=== PATIENT | female | born 1940 | race Caucasian/White ===

== ENCOUNTER 2017-04-22 16:20 | Observation (INO) | payer OTHER ==
[~2017-04-22] VITALS: Ht 167.6 cm; Wt 65.7 kg
[~2017-04-22 16:20] MED LIST: DICL1GEL28 TOP; POLYSOL50 OPR; PRED1SUS3
--- NOTE | 2017-04-22 16:41 | DIAGNOSTIC IMAGING REPORT ---
CT HEAD WITHOUT CONTRAST (CT) CLINICAL HISTORY: Weakness, confusion. Possible stroke. COMPARISON STUDY: No previous studies for comparison. TECHNIQUE: Axial CT of the brain is performed from the vertex to the skull base. IV contrast was not administered for this examination. A dose lowering technique was utilized adhering to the principles of ALARA. CT DOSE: 623.48 mGy.cm FINDINGS: No intra or extra-axial mass lesions are visualized. There is no CT evidence of acute cortical infarction. There is no evidence of midline shift. There is no acute hemorrhage. No calvarial fractures are visualized. There are patchy white matter hypodensities likely on a small vessel basis. There is no evidence of pathologic ventricular dilatation. There is a small right maxillary sinus air-fluid level. IMPRESSION: 1. No acute intracranial findings 2. Small right maxillary sinus air-fluid level. Correlate clinically in regards to sinusitis Electronically signed by: Ranjan Moran M.D. 04/22/2017 4:40 PM Dictated Date/Time: 04/22/2017 4:39 PM
--- NOTE | 2017-04-22 16:47 | EMERGENCY ROOM VISIT NOTE ---
History Report prepared by Christopher: Lindsay Damico Under the Supervision of: Dr. Wagner Vieira M.D. First contact with patient: 16:21 Stated Complaint: POSS. 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 Positive forgetfulness and leg cramps. Negative chest pain, shortness of breath, or urinary symptoms. The patient states that she was at the [employer] salon when she experienced forgetfulness. Per family, she called the [employer] to inform them that she was late due to lack of parking and she parked half a block away; however, there the parking lot was empty. Per family, the patient is normally coherent. Per EMS, the [place] stroke evaluation was negative. Per EMS, the patient's blood sugar was normal and her vital signs were normal. Per EMS, the patient was protecting her airway. Per EMS, the patient did not have obvious focal neurological deficits. She denies any other underlying medical problems. She denies any history of tobacco or alcohol use. 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 Review of Systems See HPI for pertinent positives and negatives. A total of ten systems were reviewed and were otherwise negative. Past Medical & Surgical Surgical Problems: (1) Hx of appendectomy (2) Hx of cataract surgery (3) Hx of tonsillectomy Family History Diabetes mellitus Hypertension Lung disease Social History Smoking Status: Never Smoker Alcohol Use: none Marital Status: Housing Status: lives with family Occupation Status: retired Current/Historical Medications Scheduled Polymyxin/Trimethoprim Oph (Polytrim Oph), 1 DROP OPR EVERY 1 HOUR Prednisolone Acetate 1% Oph (Pred Forte 1% Oph), 1 DROP BID Allergies Coded Allergies: No Known Allergies (Unverified , 04/22/17) Physical Exam Vital Signs Date Time Temp Pulse Resp B/P (MAP) Pulse Ox O2 Delivery O2 Flow Rate FiO2 04/22/17 20:02 36.7 81 16 137/81 97 04/22/17 19:38 81 16 137/81 97 Room Air 04/22/17 18:02 83 16 125/69 94 Room Air 04/22/17 16:50 89 04/22/17 16:41 36.7 83 16 133/76 Room Air 04/22/17 16:39 96 Room Air Physical Exam GENERAL: Awake, alert, well-appearing, NAD HENT: Normocephalic, atraumatic. EYES: Normal conjunctiva. Sclera non-icteric. NECK: Supple. No nuchal rigidity. FROM. RESPIRATORY: CTAB, no rhonchi, wheezing, crackles CARDIAC: RRR, no MRG ABDOMEN: Soft, NTND, BS+ MSK: No chest wall TTP, no LE edema NEURO: CN 2-12 intact, 5/5 upper and lower extremity strength, no dysmetria, no drift, good finger to nose, no sensory deficits. SKIN: No rash or jaundice noted. Medical Decision & Procedures ER Provider Diagnostic Interpretation: Radiology results as stated below per my review and radiologist interpretation: CT HEAD WITHOUT CONTRAST (CT) CLINICAL HISTORY: Weakness, confusion. Possible stroke. COMPARISON STUDY: No previous studies for comparison. TECHNIQUE: Axial CT of the brain is performed from the vertex to the skull base. IV contrast was not administered for this examination. A dose lowering technique was utilized adhering to the principles of ALARA. CT DOSE: 623.48 mGy.cm FINDINGS: No intra or extra-axial mass lesions are visualized. There is no CT evidence of acute cortical infarction. There is no evidence of midline shift. There is no acute hemorrhage. No calvarial fractures are visualized. There are patchy white matter hypodensities likely on a small vessel basis. There is no evidence of pathologic ventricular dilatation. There is a small right maxillary sinus air-fluid level. IMPRESSION: 1. No acute intracranial findings 2. Small right maxillary sinus air-fluid level. Correlate clinically in regards to sinusitis Electronically signed by: Ranjan Moran M.D. 04/22/2017 4:40 PM Dictated Date/Time: 04/22/2017 4:39 PM Laboratory Results 04/22/17 16:06 Red Blood Count 4.80, Mean Corpuscular Volume 91.9, Mean Corpuscular Hemoglobin 31.9, Mean Corpuscular Hemoglobin Concent 34.7, Mean Platelet Volume 9.9, Neutrophils (%) (Auto) 81.1, Lymphocytes (%) (Auto) 13.3, Monocytes (%) (Auto) 4.5, Eosinophils (%) (Auto) 0.5, Basophils (%) (Auto) 0.2, Neutrophils # (Auto) 6.66, Lymphocytes # (Auto) 1.09, Monocytes # (Auto) 0.37, Eosinophils # (Auto) 0.04, Basophils # (Auto) 0.02 04/22/17 16:06 Test 04/22/17 16:06 04/22/17 17:27 White Blood Count 8.21 K/uL (4.8-10.8) Red Blood Count 4.80 M/uL (4.2-5.4) Hemoglobin 15.3 g/dL (12.0-16.0) Hematocrit 44.1 % (37-47) Mean Corpuscular Volume 91.9 fL (80-100) Mean Corpuscular Hemoglobin 31.9 pg (25-34) Mean Corpuscular Hemoglobin Concent 34.7 g/dl (32-36) Platelet Count 190 K/uL (130-400) Mean Platelet Volume 9.9 fL (7.4-10.4) Neutrophils (%) (Auto) 81.1 % Lymphocytes (%) (Auto) 13.3 % Monocytes (%) (Auto) 4.5 % Eosinophils (%) (Auto) 0.5 % Basophils (%) (Auto) 0.2 % Neutrophils # (Auto) 6.66 K/uL (1.4-6.5) Lymphocytes # (Auto) 1.09 K/uL (1.2-3.4) Monocytes # (Auto) 0.37 K/uL (0.11-0.59) Eosinophils # (Auto) 0.04 K/uL (0-0.5) Basophils # (Auto) 0.02 K/uL (0-0.2) RDW Standard Deviation 41.8 fL (36.4-46.3) RDW Coefficient of Variation 12.4 % (11.5-14.5) Immature Granulocyte % (Auto) 0.4 % Immature Granulocyte # (Auto) 0.03 K/uL (0.00-0.02) Prothrombin Time 10.7 SECONDS (9.0-12.0) Prothromb Time International Ratio 1.0 (0.9-1.1) Activated Partial Thromboplast Time 24.8 SECONDS (21.0-31.0) Partial Thromboplastin Ratio 1.0 Anion Gap 8.0 mmol/L (3-11) Est Creatinine Clear Calc Drug Dose 48.1 ml/min Estimated GFR () 69.2 Estimated GFR (Non- 59.7 BUN/Creatinine Ratio 20.0 (10-20) Calcium Level 8.5 mg/dl (8.5-10.1) Magnesium Level 2.1 mg/dl (1.8-2.4) Total Bilirubin 0.5 mg/dl (0.2-1) Direct Bilirubin < 0.1 mg/dl (0-0.2) Aspartate Amino Transf (AST/SGOT) 23 U/L (15-37) Alanine Aminotransferase (ALT/SGPT) 26 U/L (12-78) Alkaline Phosphatase 80 U/L (45-117) Troponin I < 0.015 ng/ml (0-0.045) Pro-B-Type Natriuretic Peptide 140 pg/ml (0-1800) Total Protein 7.6 gm/dl (6.4-8.2) Albumin 3.8 gm/dl (3.4-5.0) Lipase 193 U/L (73-393) Thyroid Stimulating Hormone (TSH) 1.060 uIu/ml (0.300-4.500) Urine Color YELLOW Urine Appearance CLEAR (CLEAR) Urine pH 7.0 (4.5-7.5) Urine Specific [place] 1.013 (1.000-1.030) Urine Protein NEG (NEG) Urine Glucose (UA) NEG (NEG) Urine Ketones NEG (NEG) Urine Occult Blood NEG (NEG) Urine Nitrite NEG (NEG) Urine Bilirubin NEG (NEG) Urine Urobilinogen NEG (NEG) Urine Leukocyte Esterase NEG (NEG) Laboratory results reviewed by me Medications Administered Medications (Trade) Dose Ordered Sig/Berna Route Start Time Stop Time Status Last Admin Dose Admin Aspirin (Aspirin Chew) 324 mg NOW STAT PO 04/22/17 17:43 04/22/17 17:59 DC 04/22/17 18:02 324 MG ECG Indication: altered mental status Rate (beats per minute): 76 Rhythm: sinus rhythm Findings: nonspecific-ST abn, T-wave inversion (aVL), other (Normal axis. Short WI. No other STS changes or TWI.) ED Course 1635: The patient was evaluated in room B2. A complete history and physical exam was performed. 174: I reassessed the patient at this time. She is resting comfortably. The family states the patient is still confused. Medical Decision Prior records/ancillary studies reviewed and summarized above. Nursing notes reviewed. Additional history obtained from EMS and family. The patient's history was concerning for altered mental status. Differential diagnosis: Etiologies such as metabolic, infection, hypoglycemia, electrolyte abnormalities , cardiac sources, intracerebral event, toxicologic, neurologic, as well as others were entertained. Patient was seen and evaluated at the bedside. I did receive a medical command call us the patient did have some concern for possible confusion, altered mental status, or stroke. 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 Bony care glucose was normal on scene. Patient did go straight to CT scan. Upon presentation the patient was very well -appearing and O 3 with a GCS of 15. Patient did not have any focal either subjective or objective neurologic deficits. Patient did have blood work, EKG, troponin, CT brain, and chest x-ray completed. Patient's chest x-ray negative acute. CT brain negative acute. Patient's EKG nonischemic however, single isolated T wave inversion in aVL as well as short WI but no other acute concerns. Patient's blood work was fairly unremarkable. Patient had normal glucose. Patient had normal kidney function. Patient had no severe electrolyte derangements. Patient had a normal white blood cell count and H&H. Given the patient's ongoing confusion there was questionable concern for TIA or possible initial stroke that would require additional imaging. I did discuss this could be seizure. However, patient w/o seizure like activity, trauma, tongue biting, incontinence, or headache. I did speak with the hospitalist who agreed to further evaluate and treat the patient. Patient was given a full dose aspirin. Medication Reconcilliation Current Medication List: was personally reviewed by me Blood Pressure Screening Patient's blood pressure: Normal blood pressure Impression Primary Impression: Confusion Scribe Attestation The scribe's documentation has been prepared under my direction and personally reviewed by me in its entirety. I confirm that the note above accurately reflects all work, treatment, procedures, and medical decision making performed by me. Departure Information Dispostion Being Evaluated By Hospitalist Jesse Hummel MD (PCP)
[2017-04-22 16:57] LABS: BASO % 0.2 %; BASO ABS # 0.02 K/uL (0-0.2); EOS % 0.5 %; EOS ABS # 0.04 K/uL (0-0.5); HEMATOCRIT 44.1 % (37-47); HEMOGLOBIN 15.3 g/dL (12.0-16.0); IG# 0.03 K/uL (0.00-0.02); LYMPH % 13.3 %; LYMPH ABS # 1.09 K/uL (1.2-3.4); MEAN CELL VOLUME 91.9 fL (80-100); MEAN CORPUSCULAR HEMOGLOBIN 31.9 pg (25-34); MEAN CORPUSCULAR HGB CONC 34.7 g/dl (32-36); MEAN PLATELET VOLUME 9.9 fL (7.4-10.4); MONO % 4.5 %; MONO ABS # 0.37 K/uL (0.11-0.59); NEUT % 81.1 %; NEUT ABS # 6.66 K/uL (1.4-6.5); PLATELET COUNT 190 K/uL (130-400); RED CELL DISTRIBUTION WIDTH CV 12.4 % (11.5-14.5); RED CELL DISTRIBUTION WIDTH SD 41.8 fL (36.4-46.3); WHITE BLOOD COUNT 8.21 K/uL (4.8-10.8)
[2017-04-22 17:08] LABS: PTT PATIENT 24.8 SECONDS (21.0-31.0)
[2017-04-22 17:14] LABS: ALBUMIN 3.8 gm/dl (3.4-5.0); ALT/SGPT 26 U/L (12-78); BLOOD UREA NITROGEN 19 mg/dl (7-18); CALCIUM 8.5 mg/dl (8.5-10.1); CARBON DIOXIDE 27 mmol/L (21-32); CREATININE 0.93 mg/dl (0.60-1.20); GLUCOSE 115 mg/dl (70-99); LIPASE 193 U/L (73-393); POTASSIUM 4.1 mmol/L (3.5-5.1); SODIUM 138 mmol/L (136-145)
--- NOTE | 2017-04-22 17:23 | DIAGNOSTIC IMAGING REPORT ---
CHEST ONE VIEW PORTABLE CLINICAL HISTORY: Weakness COMPARISON STUDY: No previous studies for comparison. FINDINGS: The cardiac and mediastinal contours are normal. There is no evidence of focal pulmonary consolidation. There is no evidence of failure. No pleural effusions are visualized.[ There is mild biapical pleural thickening IMPRESSION: No active disease in the chest. Electronically signed by: Ranjan Moran M.D. 04/22/2017 5:22 PM Dictated Date/Time: 04/22/2017 5:22 PM
[2017-04-22 17:25] LABS: ALKALINE PHOSPHATASE 80 U/L (45-117); AST/SGOT 23 U/L (15-37); TOTAL PROTEIN 7.6 gm/dl (6.4-8.2)
[2017-04-22] MEDS ORDERED: ASPIRIN 324 MG CHEW PO STA (17:43)
[2017-04-22] MEDS ORDERED: ALUMINUM/MAGNESIUM/SIMETH (MAALOX MAX) 30 ML UDC PO PRN (19:30)
[2017-04-22] MEDS ORDERED: PHARMACIST DISCHARGE MED REC CONSULT PRN (19:30)
[2017-04-22] MEDS ORDERED: ACETAMINOPHEN 325 MG TAB PO PRN (19:30)
[2017-04-22] MEDS ORDERED: POLYETHYLENE (MIRALAX) 17 GM PACK PO PRN (19:30)
[2017-04-22] MEDS ORDERED: ONDANSETRON INJ 2 MG/ML 2 ML VIAL IV PRN (19:30)
[2017-04-22] MEDS ORDERED: MAGNESIUM HYDROXIDE SUSP 30 ML UDC PO PRN (19:30)
--- NOTE | 2017-04-22 19:43 | History and Physical ---
History & Physical Date & Time of Service: Apr 22, 2017 at 19:41 Chief Complaint: Poss. Stroke Primary Care Physician: Jesse Verde MD History of Present Illness Source: patient 76 y/o F with history of recently diagnosed hyperlipidemia and no additional active medical issues. The pt was apparently driving to her hair salon when she became acutely confused. She phoned the salon saying that she was going to be late as she could not find parking despite the parking lot being empty. She then told her assistant hairstylist that she did not know where her car was. The assistant hairstylist, no doubt an astute individual, recognized that she was not acting like herself, and informed her family. She was picked up by her daughter and eventually brought to the ER. The pt is awake and alert but does display memory impairment which her family states is an acute change from her baseline. She does not know the date, does not know who the president is and could not recall any items on 3 item recall. Past Medical/Surgical History Recent diagnosis of elevated cholesterol - has not been treated Surgical Problems: Appendectomy Cataract surgery Tonsillectomy Corneal transplant Family History Diabetes mellitus Hypertension Lung disease Mother owing to COPD - no history of CVA, CAD or dementia reported Social History Pt is normally fully independent Smoking Status: Never Smoker Marital Status: Occupational Status: retired Allergies Coded Allergies: No Known Allergies (Unverified , 04/22/17) Home Medications Scheduled Polymyxin/Trimethoprim Oph (Polytrim Oph), 1 DROP OPR EVERY 1 HOUR Prednisolone Acetate 1% Oph (Pred Forte 1% Oph), 1 DROP BID Review of Systems Constitutional: No fever, No chills, No sweats Eyes: No worsening of vision ENT: No hearing loss, No nasal symptoms Respiratory: No cough, No wheezing Cardiovascular: No chest pain, No orthopnea, No PND Abdomen: No pain, No vomiting Musculoskeletal: No joint pain Genitourinary - Female: No dysuria, No urinary frequency, No urinary urgency Neurologic: + memory loss, No weakness Psychiatric: No depression symptoms Endocrine: No fatigue Hematologic / Lymphatic: No abnormal bleeding/bruising Integumentary: No rash Allergic / Immunologic: No environmental allergies Physical Exam Vital Signs Date Time Temp Pulse Resp B/P (MAP) Pulse Ox O2 Delivery O2 Flow Rate FiO2 04/22/17 18:02 83 16 125/69 94 Room Air 04/22/17 16:50 89 04/22/17 16:41 36.7 83 16 133/76 Room Air 04/22/17 16:39 96 Room Air General Appearance: + pertinent finding (PLeasant, elderly female in no distress) Head: normocephalic Eyes: normal inspection ENT: normal ENT inspection, pharynx normal Neck: supple, no JVD Respiratory/Chest: chest non-tender, lungs clear, normal breath sounds Cardiovascular: regular rate, rhythm, no edema, no gallop Abdomen/GI: normal bowel sounds, non tender, soft Back: normal inspection, no CVA tenderness Extremities/Musculoskelatal: normal inspection, no calf tenderness, normal capillary refill Neurologic/Psych: emergency management system director II-XII nml as tested Skin: + pertinent finding (There are no motor or sensory deficits - coordination is fully intact - she is unable to recall the date or who the president is - she cannot recall any items on 3 item recall - she is orientd x 2 despite this) Diagnostics Laboratory Results Results Past 24 Hours Test 04/22/17 16:06 04/22/17 17:27 Range/Units White Blood Count 8.21 4.8-10.8 K/uL Red Blood Count 4.80 4.2-5.4 M/uL Hemoglobin 15.3 12.0-16.0 g/dL Hematocrit 44.1 37-47 % Mean Corpuscular Volume 91.9 80-100 fL Mean Corpuscular Hemoglobin 31.9 25-34 pg Mean Corpuscular Hemoglobin Concent 34.7 32-36 g/dl Platelet Count 190 130-400 K/uL Mean Platelet Volume 9.9 7.4-10.4 fL Neutrophils (%) (Auto) 81.1 % Lymphocytes (%) (Auto) 13.3 % Monocytes (%) (Auto) 4.5 % Eosinophils (%) (Auto) 0.5 % Basophils (%) (Auto) 0.2 % Neutrophils # (Auto) 6.66 1.4-6.5 K/uL Lymphocytes # (Auto) 1.09 1.2-3.4 K/uL Monocytes # (Auto) 0.37 0.11-0.59 K/uL Eosinophils # (Auto) 0.04 0-0.5 K/uL Basophils # (Auto) 0.02 0-0.2 K/uL RDW Standard Deviation 41.8 36.4-46.3 fL RDW Coefficient of Variation 12.4 11.5-14.5 % Immature Granulocyte % (Auto) 0.4 % Immature Granulocyte # (Auto) 0.03 0.00-0.02 K/uL Prothrombin Time 10.7 9.0-12.0 SECONDS Prothromb Time International Ratio 1.0 0.9-1.1 Activated Partial Thromboplast Time 24.8 21.0-31.0 SECONDS Partial Thromboplastin Ratio 1.0 Sodium Level 138 136-145 mmol/L Potassium Level 4.1 3.5-5.1 mmol/L Chloride Level 103 98-107 mmol/L Carbon Dioxide Level 27 21-32 mmol/L Anion Gap 8.0 3-11 mmol/L Blood Urea Nitrogen 19 7-18 mg/dl Creatinine 0.93 0.60-1.20 mg/dl Est Creatinine Clear Calc Drug Dose 48.1 ml/min Estimated GFR () 69.2 Estimated GFR (Non- 59.7 BUN/Creatinine Ratio 20.0 10-20 Random Glucose 115 70-99 mg/dl Calcium Level 8.5 8.5-10.1 mg/dl Magnesium Level 2.1 1.8-2.4 mg/dl Total Bilirubin 0.5 0.2-1 mg/dl Direct Bilirubin < 0.1 0-0.2 mg/dl Aspartate Amino Transf (AST/SGOT) 23 15-37 U/L Alanine Aminotransferase (ALT/SGPT) 26 12-78 U/L Alkaline Phosphatase 80 45-117 U/L Troponin I < 0.015 0-0.045 ng/ml Pro-B-Type Natriuretic Peptide 140 0-1800 pg/ml Total Protein 7.6 6.4-8.2 gm/dl Albumin 3.8 3.4-5.0 gm/dl Lipase 193 73-393 U/L Thyroid Stimulating Hormone (TSH) 1.060 0.300-4.500 uIu/ml Urine Color YELLOW Urine Appearance CLEAR CLEAR Urine pH 7.0 4.5-7.5 Urine Specific [place] 1.013 1.000-1.030 Urine Protein NEG NEG Urine Glucose (UA) NEG NEG Urine Ketones NEG NEG Urine Occult Blood NEG NEG Urine Nitrite NEG NEG Urine Bilirubin NEG NEG Urine Urobilinogen NEG NEG Urine Leukocyte Esterase NEG NEG Microbiology Results 04/22/17 Urine Culture, Received Pending Diagnostic Radiology CT head 1. No acute intracranial findings 2. Small right maxillary sinus air-fluid level. Correlate clinically in regards to sinusitis Normal EKG Impression Assessment and Plan 76 y/o F with history of recently diagnosed hyperlipidemia and no additional active medical issues. The pt was apparently driving to her hair salon when she became acutely confused. She phoned the salon saying that she was going to be late as she could not find parking despite the parking lot being empty. She then told her assistant hairstylist that she did not know where her car was. The assistant hairstylist, no doubt an astute individual, recognized that she was not acting like herself, and informed her family. She was picked up by her daughter and eventually brought to the ER. The pt is awake and alert but does display memory impairment which her family states is an acute change from her baseline. She does not know the date, does not know who the president is and could not recall any items on 3 item recall. The pt has persistent memory impairment - the exam would be consistent with dementia, however, the family are adamant that her memory loss is acute. She is admitted with a TIA protocol. An MRI/MRA will be obtained and we will consult neurology. She will be placed on ASA and a statin. Full code - Heparin prophylaxis Total time for this admit including review of labs, meds, imaging - discussion with pt, family and ER attending - 37 min Level of Care Telemetry Resuscitation Status FULL RESUSCITATION VTE Prophylaxis VTE Risk Assessment Done? Y/N: Yes Risk Level: Low Given or contraindicated: Unfractionated heparin SQ
[2017-04-22 20:02] VITALS: O2SAT 97
[2017-04-22 20:10] VITALS: BP 91/42; TEMP 37; Ht 167.6 cm; Wt 65.7 kg
[2017-04-22] MEDS ORDERED: IV FLUIDS COMPLETED PRN (20:15)
[2017-04-22] MEDS: PrednisoLONE ACET 1% OP SUSP 5 ML BTL OP SCH (21:00)
[2017-04-22] MEDS ORDERED: SIMVASTATIN 20 MG TAB PO SCH (21:00)
--- NOTE | 2017-04-22 21:27 | DIAGNOSTIC IMAGING REPORT ---
MR ANGIOGRAPHY OF THE [place] NO CONTRAST CLINICAL HISTORY: Weakness. Suspected acute stroke. Confusion. Memory loss. COMPARISON STUDY: None. A 3-D [id number] MR angiographic sequence of the [place] was performed. Both the source and projection images were reviewed. There is no evidence of major intracranial branch occlusion. There is no evidence of intracranial stenosis. There are no lesions suspicious for aneurysm. IMPRESSION: Unremarkable MR angiography of the [place]. Electronically signed by: Ranjan Moran M.D. 04/22/2017 9:26 PM Dictated Date/Time: 04/22/2017 9:22 PM
--- NOTE | 2017-04-22 21:36 | DIAGNOSTIC IMAGING REPORT ---
MRI OF THE BRAIN WITHOUT CONTRAST CLINICAL HISTORY: Stroke CONFUSION, MEMORY LOSS. COMPARISON STUDY: Noncontrast head CT dated 04/22/2017 FINDINGS: Sagittal T1, axial diffusion, proton density and T2 weighted axial, coronal FLAIR, and axial T1-weighted images were acquired. No intra or extra-axial mass lesions are visualized Axial diffusion-weighted images reveal no evidence of acute or subacute infarction. There is no evidence of ventricular dilatation. Proton density T2-weighted and FLAIR images reveal scattered foci of increased T2 signal within the white matter, likely on a small vessel basis. There are no abnormal flow voids. There are mild inflammatory changes within the maxillary sinuses IMPRESSION: 1. No evidence of acute or subacute infarction 2. No intracranial masses identified in this noncontrast study 3. Scattered foci of increased T2 signal within the white matter, likely on a small vessel ischemic basis Electronically signed by: Ranjan Moran M.D. 04/22/2017 9:35 PM Dictated Date/Time: 04/22/2017 9:33 PM
--- NOTE | 2017-04-22 21:53 | DIAGNOSTIC IMAGING REPORT ---
NECK MRA HISTORY: Stroke TECHNIQUE: [id number] and gadolinium-enhanced MRA of the neck was performed both before and after the intravenous administration of contrast (6.5 cc intravenous Gadavist. All measurements were calculated based on NASCET criteria. COMPARISON STUDY: None. FINDINGS: The aortic arch and proximal great vessels are widely patent. There is no significant stenosis, occlusion, or dissection identified within the bilateral common carotid, internal carotid, or vertebral arteries. IMPRESSION: No significant stenosis, occlusion, or dissection identified within the carotid or vertebral arteries. Electronically signed by: Ranjan Moran M.D. 04/22/2017 9:52 PM Dictated Date/Time: 04/22/2017 9:50 PM
[2017-04-22 22:09] VITALS: BP 91/42; PULSE 82; TEMP 37; O2SAT 93
[2017-04-22 23:15] VITALS: BP 122/76; PULSE 77; TEMP 36.8; O2SAT 97
[2017-04-23 03:05] VITALS: BP 121/71; PULSE 82; TEMP 37; O2SAT 96
[2017-04-23 07:18] VITALS: BP 117/72; PULSE 74; TEMP 36.8; O2SAT 95
[2017-04-23] MEDS: PrednisoLONE ACET 1% OP SUSP 5 ML BTL OP SCH (09:00)
[2017-04-23] MEDS ORDERED: TRIMETHOPRIM/POLYMYXIN B OPR SCH (09:00)
[2017-04-23] MEDS ORDERED: ASPIRIN 81 MG ECTAB PO SCH (09:00)
--- NOTE | 2017-04-23 11:14 | Discharge Instructions ---
Discharge Instructions Date of Service Apr 23, 2017. Admission Reason for Admission: Confusion Discharge Discharge Diagnosis / Problem: Encephalopathy, dementia Discharge Goals Goal(s): Decrease discomfort, Improve function, Increase independence, Improve disease control, Improve nutritional status, Learn about illness, Diagnostic testing, Therapeutic intervention, Prevent Disease Progression Activity Recommendations Activity Limitations: resume your previous activity Exercise/Sports Limitations: as tolerated . Instructions / Follow-Up Instructions / Follow-Up Patient to be discharged home Likely patient has beginning symptoms of dementia No stroke or lesions found on imaging studies Patient stable for discharge No changes in medications made Follow up with Dr Verde in 1-2 weeks Current Hospital Diet Patient's current hospital diet: Regular Diet Discharge Diet Recommended Diet: Regular Diet Pending Studies Studies pending at discharge: no Laboratory Results Hemoglobin A1c Test 04/22/17 16:06 Range/Units Lipid Panel Test 04/23/17 06:59 Range/Units Triglycerides Level 59 0-150 mg/dl Cholesterol Level 183 0-200 mg/dl HDL Cholesterol 73 mg/dl Cholesterol/HDL Ratio 2.5 LDL Cholesterol, Calculated 98 mg/dl Medical Emergencies . Who to Call and When: Medical Emergencies: If at any time you feel your situation is an emergency, please call 911 immediately. . Non-Emergent Contact Non-Emergency issues call your: Primary Care Provider Call Non-Emergent contact if: you have any medication questions . . "Provider Documentation" section prepared by Marck Rosas. . VTE Core Measure Inpt VTE Proph given/why not?: Unfractionated heparin SQ
[2017-04-23 11:21] VITALS: BP 119/63; PULSE 80; TEMP 36.9; O2SAT 95
[2017-04-23 12:55] VITALS: BP 119/63; PULSE 80; TEMP 36.9; O2SAT 95
--- NOTE | 2017-04-23 14:07 | Discharge Summary ---
Discharge Summary Date of Service Apr 23, 2017. Discharge Summary Admission Date: Apr 22, 2017 at 19:33 Discharge Date: Apr 23, 2017 Discharge Disposition: Home Principal Diagnosis: Acute delirium Medication Reconciliation Continued Medications: Polymyxin/Trimethoprim Oph (Polytrim Oph) Soln 1 DROP OPR EVERY 1 HOUR Prednisolone Acetate 1% Oph (Pred Forte 1% Oph) Susp 1 DROP BID Discharge Exam Review of Systems: Constitutional: No fever, No chills, No sweats, No weakness Respiratory: No cough, No sputum, No wheezing, No shortness of breath Cardiovascular: No chest pain, No orthopnea, No PND, No edema Abdomen: No pain, No nausea, No vomiting, No diarrhea Musculoskeletal: No joint pain, No muscle pain, No swelling, No calf pain Genitourinary - Female: No dysuria, No urinary frequency, No urinary urgency , No urinary incontinence Neurologic: No memory loss, No paralysis, No weakness, No numbness/tingling Psychiatric: No depression symptoms, No anhedonism, No anxiety, No insomnia Endocrine: No fatigue, No excessive thirst Integumentary: No rash, No itch Physical Exam: General Appearance: WD/WN, no apparent distress Eyes: normal inspection, PERRL, EOMI, sclerae normal Neck: supple, no adenopathy, thyroid normal, no JVD Respiratory/Chest: chest non-tender, lungs clear, normal breath sounds, no respiratory distress Cardiovascular: regular rate, rhythm, no edema, no gallop, no JVD Abdomen / GI: normal bowel sounds, non tender, soft, no organomegaly Neurologic/Psychiatric: no motor/sensory deficits, alert, normal mood/affect , oriented x 3 Skin: normal color, warm/dry, no rash Lymphatic: no adenopathy Hospital Course 76 y/o F with history of recently diagnosed hyperlipidemia and no additional active medical issues. The pt was apparently driving to her hair salon when she became acutely confused. She phoned the salon saying that she was going to be late as she could not find parking despite the parking lot being empty. She then told her bow rehairer that she did not know where her car was. The bow rehairer, no doubt an astute individual, recognized that she was not acting like herself, and informed her family. She was picked up by her daughter and eventually brought to the ER. The pt is awake and alert but does display memory impairment which her family states is an acute change from her baseline. She does not know the date, does not know who the president is and could not recall any items on 3 item recall. The pt has persistent memory impairment - the exam would be most consistent with dementia, however, the family are adamant that her memory loss is acute. Brain/neck MRI/MRA unremarkable. No focal defecits noted. Pt alert and oriented x 3 the following day. Laboratory data unremarkable, TSH, B12, lymes unremarkable. Discharge to home Full code - Heparin prophylaxis Total Time Spent: Greater than 30 minutes This includes examination of the patient, discharge planning, medication reconciliation, and communication with other providers. Discharge Instructions Please refer to the electronic Patient Visit Report (Discharge Instructions) for additional information. Additional Copies To Jesse Verde MD
[2017-04-24 08:24] LABS: HEMOGLOBIN A1C 5.7 % (4.5-5.6)
--- NOTE | 2017-05-09 14:17 | EDITING REQUIRED CODING QUERY ---
TIA CLARIFICATION Please clarify below the presence of the TIA during this admission : ( ) TIA was present during this admission ( X) TIA was ruled out during this admission ( ) Other, please clarify: Thank you for your assistance, Crystal Kent - Medical Director Of Hospice
== END 2017-04-23 13:37 | disposition home or self-care (01) ==
LOC: EDBD 16:20 → C.EDB 16:27 → C.MED 19:33 → EDBEDREQ 19:35 → ENRESERV 19:56
PROVIDERS: ADMIT Internal Medicine; ATTEND Internal Medicine
DX: G93.40 Encephalopathy, unspecified (principal); F03.90 Unspecified dementia, unspecified severity, without behavioral disturbance, psychotic disturbance, mood disturbance, and anxiety; E78.5 Hyperlipidemia, unspecified; Z90.49 Acquired absence of other specified parts of digestive tract; Z94.7 Corneal transplant status; Z83.3 Family history of diabetes mellitus; Z82.49 Family history of ischemic heart disease and other diseases of the circulatory system; Z83.6 Family history of other diseases of the respiratory system

== ENCOUNTER 2024-11-19 19:40 | Inpatient (IN) ==
--- NOTE | 2024-11-19 22:49 | History & Physical Report ---
Date of Service November 19, 2024 Assessment & Plan (1) Pneumonia: (2) Pleural effusion: Plan 84-year-old female PMHx arthritis, bronchiectasis, osteopenia, pulmonary nodules, and PE not on anticoagulation who presents from [facility] after being admitted earlier in the day for new onset of "coughing up blood." During her hospital course at the outside facility, labs were obtained which revealed a CBC with WBC 4.46, H&H 12.9/37.9, platelets 108; she tested positive for adenovirus at that time. Head CT neck CT without acute findings. Chest CTA did not reveal a PE which did show RLL pneumonia, small right pleural effusion, mediastinal right-sided and hilar adenopathy, and persistent bronchiectasis of the RML. She was started on antibiotics during her hospital course, to include ceftriaxone and azithromycin. She was also provided with DuoNeb. #PNA/Pleural Effusion/? Hemoptysis Presenting with suspected new onset hemoptysis after "few day course" of coughing. Does follow with seismic computer who encouraged her to utilize percussion vest daily, she is compliant. H/o PE, not on anticoagulation currently. No SOB at admission. H/o bronchiectasis. Awaiting further outside records. - Labs per outside record - CBC w/ leukopenia (4.46), H/H 12.9/37.9, plt 108 -- CBC, CMP pending am - Bio[employer] per outside record (+) adenovirus - Chest CTA per outside record -- no evidence of PE, RLL pneumonia, small right pleural effusion, mediastinal right hilar adenopathy, bronchiectasis of the RML - O2 prn - no O2 at baseline - NPO midnight - Percussion vest therapy daily - Humidified O2 - DuoNebs prn wheezing - Robitussin prn cough - Ceftriaxone IV + Azithromycin for PNA - Pulm consulted - appreciate input + recs #OA- Diclofenac gel prn - continue #Osteopenia- Vitamin D supp - continue #H/o corneal transplant - continue eye drops as prescribed Dispo: Admit, PCU VTE Prophylaxis: SCDs This document was dictated utilizing IPexpert. Please excuse any grammatical errors that may be secondary to use of this software. Admission and Anticipated Discharge Date Admission Date: November 19, 2024 History of Present Illness Chief Complaint: Coughing blood, cough Primary Care Provider: NO PCP 84-year-old female PMHx arthritis, bronchiectasis, osteopenia, pulmonary nodules, and PE not on anticoagulation who presents from [facility] after being admitted earlier in the day for new onset of "coughing up blood". Patient was accepted for transfer to [facility] for the new onset hemoptysis given limited resources at outside hospital. Patient states that she has been coughing for "weeks". She does follow with a seismic computer, who was encouraged her to use her percussion jacket daily. She states that she normally will have some phlegm production that is clear in nature, but over the past few days she has had a worsening cough. On the day of arrival she states that she had coughed up "cups of blood; it was like water." She admits that she has never had this happen before. This gave her choking sensation at the time that it happened. Per hospitalist at outside facility, around 1630 the day of arrival the patient had a coughing episode but did not become hypoxic at any point. She was given a DuoNeb at that time and diagnosed with pneumonia. The patient states again that she has never had this happen before. She is not feeling shortness of breath, no chest pain, no palpitations, no nausea or vomiting. She does not feel weak, lightheaded, dizzy, and has not had any episode of syncope. She does not wear oxygen at baseline. 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 She does have some pulmonary conditions but is not aware of what they are. She denies URI symptoms, fever/chills, night sweats, LUTS, abdominal pain, diarrhea/constipation, or additional concerns. Again, she has never had this happen before. During her hospital course at the outside facility, labs were obtained which revealed a CBC with WBC 4.46, H&H 12.9/37.9, platelets 108; she tested positive for adenovirus at that time. Head CT neck CT without acute findings. Chest CTA did not reveal a PE which did show RLL pneumonia, small right pleural effusion, mediastinal right-sided and hilar adenopathy, and persistent bronchiectasis of the RML. She was started on antibiotics during her hospital course, to include ceftriaxone and azithromycin. She was also provided with DuoNeb. Please see Dr. David's attestation for adjustments/additions to treatment plan. Allergies Allergy/AdvReac Type Severity Reaction Status Date / Time No Known Allergies Allergy Verified 01/15/18 10:56 Home Medications Medication Instructions Recorded Confirmed Type calcium ER 600 mg (as carb,cit)-D3 1 tab PO QAM 01/12/18 11/19/24 History 12.5 mcg (500 unit) tablet, ext.rel (Citracal-D3 Slow Release) diclofenac sodium 1 % topical gel 2 g topical QID PRN Pain 01/12/18 11/19/24 History (Arthritis Pain (diclofenac)) ibuprofen 200 mg capsule 600 mg PO QID PRN Pain 01/12/18 11/19/24 History loteprednol etabonate 0.5 % eye 1 drp ophthalmic (eye) QAM 01/12/18 11/19/24 History drops,suspension (Lotemax) brimonidine 0.2 %-timolol 0.5 % 1 drp ophthalmic (eye) BID 01/15/18 11/19/24 History eye drops (Combigan) moxifloxacin 0.5 % eye drops 1 drp ophthalmic (eye) QID 01/15/18 11/19/24 History (Vigamox) prednisolone acetate 1 % eye 1 drp ophthalmic (eye) Q12 01/15/18 11/19/24 History drops,suspension (Pred Forte) Past Med/Surg History Problem List (Updated 11/19/24 @ 23:26 by Smith Geller PA-C) Pleural effusion Pneumonia History of corneal transplant (Acute) Eye pain (Acute) Corneal ulcer (Acute) Medical History Hx of cataract both eyes Hx of staphylococcal infection right eye Hyperlipidemia states no longer takes meds d/t muscle aching Surgical History Hx of colonoscopy Hx of tonsillectomy Hx of appendectomy Hx of cornea transplant x2 right eye Social History Smoking Status: Never smoker Hx Alcohol Use: No Hx Substance Use: No Preferred Language: Luxembourgish Communication Ability: Effective Returns Clerk Required: No Beliefs That Will Affect Care: None Current Living Situation: Family Feels Safe at Home: Yes Safety Concerns: Feels Safe At This Time Assistive Devices: Denture - Upper Assistive Devices Comment: partial dentures upper Review of Systems Review of Systems: All systems reviewed & are unremarkable except as noted in Subjective Physical Exam Physical Exam: General: No acute distress Skin: Warm and dry Head: Normocephalic, atraumatic Eyes: PERRL, conjunctivae clear, sclera non-icteric; wearing glasses ENT: External ear and ear canal without swelling; nose atraumatic; good dentition, tongue normal appearance, pharynx normal Neck: Supple, no LAD Cardio: RRR, no M/G/R, S1 and S2 normal Resp: Wearing O2 via NC (not at baseline); no respiratory distress, diffuse expiratory wheezing along the right lung lobe Abdomen: Soft, symmetric, nontender; No masses or hepatosplenomegaly; Bowel sounds normoactive MSK: No deformities; pulses palpable and equal; no edema. Neuro: Awake, alert; Sensation intact bilaterally; CN grossly intact Psych: Appropriate mood and affect; good judgement and insight. Code Status & VTE Plan Code Status Full VTE Prophylaxis Plan VTE Prophylaxis will be ordered: Yes Supervising Physician Co-Signing Physician Notes Patient seen and examined, chart reviewed, case discussed with GROVER Geller and I agree with the assessment and plan as above PG Care Time/CCT Total # of Minutes Spent Total Time Spent with Patient: Total time spent is greater than 50% in coordination of care (as documented) at patient's floor/unit and/or counseling patient: Coding Level of Care Code 55059 INT INP/OBS CARE 75MIN Diagnoses Pneumonia J18.9 Pleural effusion J90
[2024-11-19] MEDS ORDERED: ALBUT/IPRATROP 3MG/0.5MG NEB 3 ML VIAL NEB PRN (23:32)
[2024-11-19] MEDS ORDERED: DICLOFENAC SOD 1% GEL 100 GM TUBE EXT PRN (23:37)
[2024-11-20] MEDS: cefTRIAXone SODIUM 2,000 MG/50 ML BAG IV SCH (00:17)
[2024-11-20 05:19] LABS: Hematocrit (blood only) 36.6 % (37.0-47.0); Hemoglobin 12.6 g/dl (12.0-16.0); Mean Corpuscular Hemoglobin 30.1 pg (25.0-34.0); Mean Corpuscular Volume 87.6 fL (80.0-100.0); Platelet Count 127 K/uL (130-400); RDW Standard Deviation 39.5 fL (36.4-46.3); Red Blood Count 4.18 M/uL (4.20-5.40); White Blood Count 4.99 K/ul (4.8-10.8)
[2024-11-20 05:39] LABS: Alanine Aminotransferase 18.0 U/L (7-52); Albumin Globulin Ratio 1.0 (0.9-2); Alkaline Phosphatase 55.0 U/L (34-104); Anion Gap 7.0 (3-11); Bilirubin,Total 0.5 mg/dl (0.2-1.0); Blood Urea Nitrogen 12.0 mg/dl (6-23); Calcium 7.9 mg/dl (8.6-10.3); Carbon Dioxide 26.0 mmol/L (21-32); Chloride 103.0 mmol/L (98-107); Creatinine Clr Calc Pharmacy 60.8 ml/min; Globulin 3.1 gm/dl (2.5-4.0); Glucose 95.0 mg/dl (70-99(Fasting)); Potassium 3.5 mmol/L (3.5-5.1); Sodium 136.0 mmol/L (136-145); Total Protein 6.2 gm/dl (6.0-8.3)
--- NOTE | 2024-11-20 07:34 | Pulmonary Consultation ---
Date of Consultation November 20, 2024 Assessment & Plan (1) Multifocal pneumonia: (2) Bronchiectasis: (3) Acute respiratory failure with hypoxia: (4) Hemoptysis: Plan 84-year-old female was transferred from [facility] for hemoptysis Past medical history: Bronchiectasis, history of pulmonary nodules, history of PE not on any anticoagulation, osteopenia Pulmonary consulted for hemoptysis CT chest 11/19/2024 personally reviewed: Bilateral apical pleural scarring Bronchiectasis appreciated in the right middle lobe as well as inferior lobe of the lingula Dense consolidative process appreciated in the right lower lobe Patchy groundglass opacities in the left upper lobe as well as right lower lobe Right hilar lymphadenopathy --Acute hypoxic respiratory failure Likely secondary to multifocal pneumonia Continue with broad-spectrum antibiotics Oxygen supplementation to keep O2 saturation between 90-92% -- Hemoptysis with multifocal pneumonia As per the patient the hemoptysis has been mellowed down since coming to the hospital -- Bronchiectasis Did have bronchoscopy done approximately [address] Huynh Using only chest vest at home. Not on Mucinex or hypertonic saline nebulized Plan: Antitussive medication [id number] Avoid flutter valve. Hold chest vest therapy also for the time being. Follow-up immunoglobulin levels given the history of bronchiectasis Continue with antibiotics with atypical coverage. Azithromycin Rocephin reasonable Follow sputum culture and sputum AFB Will continue to monitor. If there is any worsening then bronchoscopy would be thought of. All questions and queries of the patient as well as patient's daughter were answered in depth. Case was discussed with RN I spent more than 75 minutes looking in the chart, images, discussing the plan of care with the patient, RN as well as primary team Please note the above document was generated using voice recognition software. It may contain grammatical, syntax or spelling errors.Any formal questions or concerns about the content, text or information contained within the body of this dictation should be directly addressed to the provider for clarification. History of Present Illness Attending Physician: Nnamdi Hartman History of Present Illness 84-year-old female was transferred from [facility] for hemoptysis Past medical history: Bronchiectasis, history of pulmonary nodules, history of PE not on any anticoagulation, osteopenia Pulmonary consulted for hemoptysis Patient's daughter was in the room at the time of examination She was saturating 87% on room air, her saturation went up to 93-94% on 2 L nasal cannula Patient stated that she has been having issues with coughing and generalized weakness for approximately 4-5 days prior to coming to the ER. Does complain of chest congestion. Whenever she brings up the phlegm is mostly yellow with blood-tinged. It was getting worse as days progressed but since coming to the hospital it has mellowed down. She was hacking a lot for the cough. She is not on any blood thinners. Denies any recent sick contact Denies any history of trauma. No dysuria or diarrhea prior to coming to the hospital No fevers. Subjective chills No blurry vision, no headache Social history: Lifetime non-smoker. Has a dog at home. No history of asthma No personal or family history of lung cancer Allergies Allergy/AdvReac Type Severity Reaction Status Date / Time No Known Allergies Allergy Verified 01/15/18 10:56 Home Medications Medication Instructions Recorded Confirmed Type calcium ER 600 mg (as carb,cit)-D3 1 tab PO QAM 01/12/18 11/19/24 History 12.5 mcg (500 unit) tablet, ext.rel (Citracal-D3 Slow Release) diclofenac sodium 1 % topical gel 2 g topical QID PRN Pain 01/12/18 11/19/24 History (Arthritis Pain (diclofenac)) ibuprofen 200 mg capsule 600 mg PO QID PRN Pain 01/12/18 11/19/24 History prednisolone acetate 1 % eye 1 drp ophthalmic (eye) Q12 01/15/18 11/19/24 History drops,suspension (Pred Forte) Patient History Medical History Hx of cataract both eyes Hx of staphylococcal infection right eye Hyperlipidemia states no longer takes meds d/t muscle aching Surgical History Hx of colonoscopy Hx of tonsillectomy Hx of appendectomy Hx of cornea transplant x2 right eye Social History Smoking Status: Never smoker Hx Alcohol Use: No Hx Substance Use: No Preferred Language: Hungarian Communication Ability: Effective Lasting Machine Operator Required: No Beliefs That Will Affect Care: None Current Living Situation: Family Feels Safe at Home: Yes Safety Concerns: Feels Safe At This Time Assistive Devices: Denture - Upper Assistive Devices Comment: partial dentures upper Review of Systems 2 Review of Systems: All systems reviewed & are unremarkable except as noted in HPI & below Physical Exam 2 Physical Exam: Constitutional: No acute distress HEENT: EOMI, PERRLA Respiratory system: Decreased air entry bilaterally, no wheeze, no rhonchi, positive crackles bilaterally CVS: S1-S2 positive, no murmurs or gallops Abdomen: Soft, nontender, nondistended, positive bowel sounds x4 Extremities: +2 pulses bilaterally radialis/ dorsalis pedis, no cyanosis, no edema Neuro: Awake alert oriented x3 Psych: Normal mood and affect G/U: Pure wick Skin: no rashes, warm and dry Lymphatic: no cervical or axillary lymphadenopathy Results & Data Results & Data Vital Signs (Past 12 Hours) Vital Signs Temp Pulse Resp BP BP Pulse Ox O2 Del Method 11/20/24 07:30 36.4 C L 87 19 136/76 94 Nasal Cannula 11/20/24 03:21 37.2 C 73 16 123/70 94 Nasal Cannula 11/19/24 22:23 Nasal Cannula 11/19/24 22:23 37.0 C 77 20 145/89 H 93 Nasal Cannula O2 Flow Rate 11/20/24 07:30 2 11/20/24 03:21 2 11/19/24 22:23 2 11/19/24 22:23 2 Laboratory Results 11/20/24 04:59 11/20/24 04:59 PG Care Time/CCT Total # of Minutes Spent Total Time Spent with Patient: Total time spent is greater than 50% in coordination of care (as documented) at patient's floor/unit and/or counseling patient: Coding Level of Care Code 07001 INT INP/OBS CARE 375MIN Diagnoses Multifocal pneumonia J18.8 Bronchiectasis J47.9 Acute respiratory failure with hypoxia J96.01 Hemoptysis R04.2
[2024-11-20] MEDS: CALCIUM 600MG + VIT D 400 IU TAB PO SCH (08:25)
[2024-11-20] MEDS: prednisoLONE acetate 1% OP SUSP 5 ML BTL OP SCH (08:25)
[2024-11-20] MEDS: AZITHROMYCIN 250 MG TAB PO SCH (08:25)
[2024-11-20] MEDS ORDERED: MOXIFLOXACIN HCL 0.5% OP SOLN 3 ML BTL OP SCH (09:00)
[2024-11-20] MEDS ORDERED: TIMOLOL MALEATE 0.5% OP SOLN 5 ML BTL OP SCH (09:00)
[2024-11-20] MEDS ORDERED: NON-FORMULARY MEDICATION (Brimonidine-Timolol [Combigan] 0.2-0.5 % Drops) OP SCH (09:00)
[2024-11-20] MEDS ORDERED: BRIMONIDINE TARTRATE 0.2% 5ML OP SCH (09:00)
[2024-11-20] MEDS: ACETAMINOPHEN 500 MG TAB PO PRN (09:05)
[2024-11-20 11:30] LABS: INR 1.1 (0.9-1.1); Partial Thromboplastin Time 33 Seconds (21-31); Prothrombin Time 11.9 Seconds (9.0-12.0)
[2024-11-20] MEDS: FORMOTEROL 20 MCG/2 ML VIAL NEB SCH (19:41)
--- NOTE | 2024-11-20 22:49 | Hospitalist Progress Note ---
Date of Service November 20, 2024 Assessment & Plan (1) Pneumonia: (2) Pleural effusion: Plan 84-year-old female PMHx arthritis, bronchiectasis, osteopenia, pulmonary nodules, and PE not on anticoagulation who presents from [facility] after being admitted earlier in the day for new onset of "coughing up blood." During her hospital course at the outside facility, labs were obtained which revealed a CBC with WBC 4.46, H&H 12.9/37.9, platelets 108; she tested positive for adenovirus at that time. Head CT neck CT without acute findings. Chest CTA did not reveal a PE which did show RLL pneumonia, small right pleural effusion, mediastinal right-sided and hilar adenopathy, and persistent bronchiectasis of the RML. She was started on antibiotics during her hospital course, to include ceftriaxone and azithromycin. She was also provided with DuoNeb. #PNA/Pleural Effusion/? Hemoptysis Presenting with suspected new onset hemoptysis after "few day course" of coughing. Does follow with health analyst who encouraged her to utilize percussion vest daily, she is compliant. H/o PE, not on anticoagulation currently. No SOB at admission. H/o bronchiectasis. Awaiting further outside records. - Labs per outside record - CBC w/ leukopenia (4.46), H/H 12.9/37.9, plt 108 -- CBC, CMP pending am - [employer] per outside record (+) adenovirus - Chest CTA per outside record -- no evidence of PE, RLL pneumonia, small right pleural effusion, mediastinal right hilar adenopathy, bronchiectasis of the RML - O2 prn - no O2 at baseline -appreciate input from pulm will stop percussion vest and flutter valve and incentive spirometry will continue antibiotics: cef and azithromycin. - DuoNebs prn wheezing - Robitussin prn cough - Ceftriaxone IV + Azithromycin for PNA - Pulm consulted - appreciate input + recs #OA- Diclofenac gel prn - continue #Osteopenia- Vitamin D supp - continue #H/o corneal transplant - continue eye drops as prescribed Dispo: Admit, PCU VTE Prophylaxis: SCDs Admission and Anticipated Discharge Date Admission Date: November 19, 2024 Subjective Patient reports no new symptoms. Physical Exam Physical Exam: General: No acute distress Skin: Warm and dry Head: Normocephalic, atraumatic Neck: Supple, no LAD Cardio: RRR, no M/G/R, S1 and S2 normal Resp: decreased wheezing, Abdomen: Soft, symmetric, nontender; No masses or hepatosplenomegaly; Bowel sounds normoactive MSK: No deformities; pulses palpable and equal; no edema. Neuro: Awake, alert; Sensation intact bilaterally; CN grossly intact Psych: Appropriate mood and affect; good judgement and insight. Results & Data Results & Data Vital Signs (Past 12 Hours) Vital Signs Temp Pulse Pulse Pulse Resp BP BP 11/20/24 20:01 11/20/24 19:52 36.4 C L 81 18 120/74 11/20/24 19:43 75 17 11/20/24 15:48 36.7 C 64 17 114/75 11/20/24 14:36 73 11/20/24 10:58 36.6 C 65 17 146/83 H Pulse Ox O2 Del Method O2 Flow Rate 11/20/24 20:01 Nasal Cannula 2 11/20/24 19:52 94 Nasal Cannula 2 11/20/24 19:43 92 Nasal Cannula 11/20/24 15:48 94 Nasal Cannula 2 11/20/24 14:36 11/20/24 10:58 95 Nasal Cannula 2 PG Care Time/CCT Total # of Minutes Spent Total Time Spent with Patient: Total time spent is greater than 50% in coordination of care (as documented) at patient's floor/unit and/or counseling patient: Coding Level of Care Code 31651 SUB INP/OBS CARE 3/50MIN Diagnoses Pneumonia J18.9 Pleural effusion J90
[2024-11-21 06:17] LABS: Hematocrit (blood only) 39.7 % (37.0-47.0); Hemoglobin 14.1 g/dl (12.0-16.0); Mean Corpuscular Hemoglobin 31.5 pg (25.0-34.0); Mean Corpuscular Volume 88.8 fL (80.0-100.0); Platelet Count 150 K/uL (130-400); RDW Standard Deviation 39.6 fL (36.4-46.3); Red Blood Count 4.47 M/uL (4.20-5.40); White Blood Count 5.71 K/ul (4.8-10.8)
[2024-11-21 06:35] LABS: Anion Gap 8.0 (3-11); Blood Urea Nitrogen 13.0 mg/dl (6-23); Calcium 8.2 mg/dl (8.6-10.3); Carbon Dioxide 30.0 mmol/L (21-32); Chloride 100.0 mmol/L (98-107); Creatinine Clr Calc Pharmacy 50.0 ml/min; Glucose 100.0 mg/dl (70-99(Fasting)); Immunoglobulin A 194.6 mg/dl (70-400); Immunoglobulin G 1433.2 mg/dl (635-1741); Immunoglobulin M 89.2 mg/dl (45-281); Potassium 3.5 mmol/L (3.5-5.1); Sodium 138.0 mmol/L (136-145)
--- NOTE | 2024-11-21 09:03 | Pulmonology Progress Note ---
Date of Service November 21, 2024 Assessment & Plan (1) Multifocal pneumonia: (2) Bronchiectasis: (3) Acute respiratory failure with hypoxia: (4) Hemoptysis: Plan 84-year-old female was transferred from [facility] for hemoptysis Past medical history: Bronchiectasis, history of pulmonary nodules, history of PE not on any anticoagulation, osteopenia Pulmonary consulted for hemoptysis CT chest 11/19/2024 personally reviewed: Bilateral apical pleural scarring Bronchiectasis appreciated in the right middle lobe as well as inferior lobe of the lingula Dense consolidative process appreciated in the right lower lobe Patchy groundglass opacities in the left upper lobe as well as right lower lobe Right hilar lymphadenopathy --Acute hypoxic respiratory failure Likely secondary to multifocal pneumonia Continue with broad-spectrum antibiotics Oxygen supplementation to keep O2 saturation between 90-92% -- Hemoptysis with multifocal pneumonia As per the patient the hemoptysis has been mellowed down since coming to the hospital -- Bronchiectasis Immunoglobulins within normal limit on 11/21/2024 Did have bronchoscopy done approximately [address] Huynh Using only chest vest at home. Not on Mucinex or hypertonic saline nebulized Plan: H&H is stable Continue with antitussive medication [id number] Avoid flutter valve. Hold chest vest therapy also for the time being. Continue with antibiotics with atypical coverage. Repeat chest x-ray in the morning Follow sputum culture and sputum AFB Will continue to monitor. If there is any worsening then bronchoscopy would be thought of. Case was discussed with RN and primary team Please note the above document was generated using voice recognition software. It may contain grammatical, syntax or spelling errors.Any formal questions or concerns about the content, text or information contained within the body of this dictation should be directly addressed to the provider for clarification. Admission and Anticipated Discharge Date Admission Date: November 19, 2024 Subjective Patient seen and examined at bedside. No acute distress She was saturating 92-93% on room air. She has not coughed up much since starting on antitussive medication She did cough when I entered the room and it was dark brownish rather than the pinkish. Denies any chest pain Overall she says she is feeling better. Has been afebrile Review of Systems 2 Review of Systems: All systems reviewed & are unremarkable except as noted in Subjective Physical Exam 2 Physical Exam: Constitutional: No acute distress HEENT: EOMI, PERRLA Respiratory system: Decreased air entry bilaterally, no wheeze, no rhonchi, positive crackles bilaterally CVS: S1-S2 positive, no murmurs or gallops Abdomen: Soft, nontender, nondistended, positive bowel sounds x4 Extremities: +2 pulses bilaterally radialis/ dorsalis pedis, no cyanosis, no edema Neuro: Awake alert oriented x3 Psych: Normal mood and affect G/U: Pure wick Skin: no rashes, warm and dry Lymphatic: no cervical or axillary lymphadenopathy Results & Data Results & Data Vital Signs (Past 12 Hours) Vital Signs Temp Pulse Resp BP Pulse Ox O2 Del Method O2 Flow Rate 11/21/24 07:42 36.3 C L 72 17 121/79 92 Room Air 11/21/24 07:10 70 16 91 Room Air 11/21/24 06:37 93 Room Air 11/21/24 02:35 36.7 C 77 16 114/69 93 Nasal Cannula 2 11/20/24 23:05 36.8 C 69 16 118/70 95 Nasal Cannula 2 Laboratory Results 11/21/24 05:59 11/21/24 05:59 PG Care Time/CCT Total # of Minutes Spent Total Time Spent with Patient: Total time spent is greater than 50% in coordination of care (as documented) at patient's floor/unit and/or counseling patient: Coding Level of Care Code 52161 SUB INP/OBS CARE 2/35MIN Diagnoses Multifocal pneumonia J18.8 Bronchiectasis J47.9 Acute respiratory failure with hypoxia J96.01 Hemoptysis R04.2
--- NOTE | 2024-11-21 23:13 | Hospitalist Progress Note ---
Date of Service November 21, 2024 Assessment & Plan (1) Pneumonia: (2) Pleural effusion: Plan 84-year-old female PMHx arthritis, bronchiectasis, osteopenia, pulmonary nodules, and PE not on anticoagulation who presents from [facility] after being admitted earlier in the day for new onset of "coughing up blood." During her hospital course at the outside facility, labs were obtained which revealed a CBC with WBC 4.46, H&H 12.9/37.9, platelets 108; she tested positive for adenovirus at that time. Head CT neck CT without acute findings. Chest CTA did not reveal a PE which did show RLL pneumonia, small right pleural effusion, mediastinal right-sided and hilar adenopathy, and persistent bronchiectasis of the RML. She was started on antibiotics during her hospital course, to include ceftriaxone and azithromycin. She was also provided with DuoNeb. #PNA/Pleural Effusion/? Hemoptysis Presenting with suspected new onset hemoptysis after "few day course" of coughing. Does follow with [employer] architect who encouraged her to utilize percussion vest daily, she is compliant. H/o PE, not on anticoagulation currently. No SOB at admission. H/o bronchiectasis. Awaiting further outside records. - Labs per outside record - CBC w/ leukopenia (4.46), H/H 12.9/37.9, plt 108 -- CBC, CMP pending am - Bio[employer] per outside record (+) adenovirus - Chest CTA per outside record -- no evidence of PE, RLL pneumonia, small right pleural effusion, mediastinal right hilar adenopathy, bronchiectasis of the RML - O2 prn - no O2 at baseline -appreciate input from pulm will stop percussion vest and flutter valve and incentive spirometry will continue antibiotics: cef and azithromycin. - DuoNebs prn wheezing - Robitussin prn cough - Ceftriaxone IV + Azithromycin for PNA - Pulm consulted - appreciate input + recs -will continue above abx, no need for bronch at this time. Patient showing improvement and requiring less O2 awaiting input from PT #OA- Diclofenac gel prn - continue #Osteopenia- Vitamin D supp - continue #H/o corneal transplant - continue eye drops as prescribed Dispo: Admit, PCU VTE Prophylaxis: SCDs Admission and Anticipated Discharge Date Admission Date: November 19, 2024 Subjective Patient reports breathing better today. She still feels somewhat weak. Physical Exam Physical Exam: Constitutional: No acute distress HEENT: EOMI, PERRLA Respiratory system: Decreased air entry bilaterally, no wheeze, no rhonchi, positive crackles bilaterally CVS: S1-S2 positive, no murmurs or gallops Abdomen: Soft, nontender, nondistended, positive bowel sounds x4 Extremities: +2 pulses bilaterally radialis/ dorsalis pedis, no cyanosis, no edema Neuro: Awake alert oriented x3 Psych: Normal mood and affect G/U: Pure wick Skin: no rashes, warm and dry Lymphatic: no cervical or axillary lymphadenopathy Results & Data Results & Data Vital Signs (Past 12 Hours) Vital Signs Temp Pulse Pulse Resp BP BP Pulse Ox 11/21/24 22:55 36.8 C 68 18 129/80 94 11/21/24 20:07 11/21/24 19:45 11/21/24 19:23 36.6 C 71 124/72 94 11/21/24 16:08 36.6 C 71 17 131/84 94 11/21/24 15:00 72 11/21/24 11:27 36.6 C 74 17 129/84 91 O2 Del Method O2 Flow Rate 11/21/24 22:55 Nasal Cannula 2 11/21/24 20:07 Room Air 11/21/24 19:45 Nasal Cannula 2 11/21/24 19:23 Nasal Cannula 2.0 11/21/24 16:08 Nasal Cannula 2 11/21/24 15:00 11/21/24 11:27 Room Air PG Care Time/CCT Total # of Minutes Spent Total Time Spent with Patient: Total time spent is greater than 50% in coordination of care (as documented) at patient's floor/unit and/or counseling patient: Coding Level of Care Code 85573 SUB INP/OBS CARE 3/50MIN Diagnoses Pneumonia J18.9 Pleural effusion J90
[2024-11-22 06:39] LABS: Hematocrit (blood only) 38.2 % (37.0-47.0); Hemoglobin 13.0 g/dl (12.0-16.0); Mean Corpuscular Hemoglobin 30.2 pg (25.0-34.0); Mean Corpuscular Volume 88.8 fL (80.0-100.0); Platelet Count 143 K/uL (130-400); RDW Standard Deviation 40.0 fL (36.4-46.3); Red Blood Count 4.30 M/uL (4.20-5.40); White Blood Count 5.48 K/ul (4.8-10.8)
[2024-11-22 07:06] LABS: Anion Gap 7.0 (3-11); Blood Urea Nitrogen 12.0 mg/dl (6-23); Calcium 8.1 mg/dl (8.6-10.3); Carbon Dioxide 29.0 mmol/L (21-32); Chloride 101.0 mmol/L (98-107); Creatinine Clr Calc Pharmacy 58.3 ml/min; Glucose 100.0 mg/dl (70-99(Fasting)); Potassium 3.5 mmol/L (3.5-5.1); Sodium 137.0 mmol/L (136-145)
--- NOTE | 2024-11-22 07:29 | XRay Report ---
EXAM: XR chest 1V portable CLINICAL HISTORY: f/u TECHNIQUE: X-ray image of the chest obtained in 1 frontal projection. COMPARISON: No prior studies available for comparison. FINDINGS: Pulmonary Parenchyma: Mild haziness in bilateral lower zones. No pulmonary nodules identified. Blunting of bilateral CP angles likely pleural effusion vs thickening. Heart and Mediastinum: Heart size and shape are normal. No mediastinal widening or masses. No hilar or mediastinal lymphadenopathy. Bony Thorax: Spondylotic changes in thoracic spine. Bony thorax appears intact without fractures or deformities. Soft Tissues: Soft tissues overlying the chest wall are unremarkable. IMPRESSION: 1. Mild haziness in bilateral lower zones likely pulmonary infiltrates, needs clinical and lab parameters correlation. 2. Blunting of bilateral CP angles likely pleural effusion vs thickening. Electronically signed by Gennaro Lloyd 11-22-2024 07:29 AM
--- NOTE | 2024-11-22 08:10 | Pulmonology Progress Note ---
Date of Service November 22, 2024 Assessment & Plan (1) Multifocal pneumonia: (2) Bronchiectasis: (3) Acute respiratory failure with hypoxia: (4) Hemoptysis: Plan 84-year-old female was transferred from [facility] for hemoptysis Past medical history: Bronchiectasis, history of pulmonary nodules, history of PE not on any anticoagulation, osteopenia Pulmonary consulted for hemoptysis CT chest 11/19/2024 personally reviewed: Bilateral apical pleural scarring Bronchiectasis appreciated in the right middle lobe as well as inferior lobe of the lingula Dense consolidative process appreciated in the right lower lobe Patchy groundglass opacities in the left upper lobe as well as right lower lobe Right hilar lymphadenopathy --Acute hypoxic respiratory failure Likely secondary to multifocal pneumonia Continue with broad-spectrum antibiotics Oxygen supplementation to keep O2 saturation between 90-92% -- Hemoptysis with multifocal pneumonia As per the patient the hemoptysis has been mellowed down since coming to the hospital -- Bronchiectasis Immunoglobulins within normal limit on 11/21/2024 Did have bronchoscopy done approximately [address] Huynh Using only chest vest at home. Not on Mucinex or hypertonic saline nebulized -- History of pulmonary emboli Was provoked from surgery S/p anticoagulation Plan: H&H is stable Continue with antitussive medication [id number] Avoid flutter valve. Continue hold chest vest therapy also for the time being. Continue with antibiotics with atypical coverage. Sputum culture negative to date Continue Case was discussed with RN and primary team Please note the above document was generated using voice recognition software. It may contain grammatical, syntax or spelling errors.Any formal questions or concerns about the content, text or information contained within the body of this dictation should be directly addressed to the provider for clarification. Admission and Anticipated Discharge Date Admission Date: November 19, 2024 Subjective Patient seen and examined at bedside. No acute distress, no adverse events overnight Was saturating 93% on 1 L nasal cannula. Brought some phlegm which was dark red in colour. No chest pain, no chest tightness Overall says that she is feeling better. Review of Systems 2 Review of Systems: All systems reviewed & are unremarkable except as noted in Subjective Physical Exam 2 Physical Exam: Constitutional: No acute distress HEENT: EOMI, PERRLA Respiratory system: Decreased air entry bilaterally, no wheeze, no rhonchi, positive crackles bilaterally CVS: S1-S2 positive, no murmurs or gallops Abdomen: Soft, nontender, nondistended, positive bowel sounds x4 Extremities: +2 pulses bilaterally radialis/ dorsalis pedis, no cyanosis, no edema Neuro: Awake alert oriented x3 Psych: Normal mood and affect G/U: Pure wick Skin: no rashes, warm and dry Lymphatic: no cervical or axillary lymphadenopathy Results & Data Results & Data Vital Signs (Past 12 Hours) Vital Signs Temp Pulse Pulse Resp BP Pulse Ox O2 Del Method 11/22/24 07:52 Room Air 11/22/24 07:02 73 16 92 Nasal Cannula 11/22/24 03:05 36.9 C 75 18 118/69 90 Nasal Cannula 11/22/24 00:00 66 11/21/24 22:55 36.8 C 68 18 129/80 94 Nasal Cannula O2 Flow Rate 11/22/24 07:52 11/22/24 07:02 1 11/22/24 03:05 2.0 11/22/24 00:00 11/21/24 22:55 2 Laboratory Results 11/22/24 06:14 11/22/24 06:14 PG Care Time/CCT Total # of Minutes Spent Total Time Spent with Patient: Total time spent is greater than 50% in coordination of care (as documented) at patient's floor/unit and/or counseling patient: Coding Level of Care Code 54522 SUB INP/OBS CARE 2/35MIN Diagnoses Multifocal pneumonia J18.8 Bronchiectasis J47.9 Acute respiratory failure with hypoxia J96.01 Hemoptysis R04.2
--- NOTE | 2024-11-22 23:18 | Hospitalist Progress Note ---
Date of Service November 22, 2024 Assessment & Plan (1) Pneumonia: (2) Pleural effusion: Plan 84-year-old female PMHx arthritis, bronchiectasis, osteopenia, pulmonary nodules, and PE not on anticoagulation who presents from [facility] after being admitted earlier in the day for new onset of "coughing up blood." During her hospital course at the outside facility, labs were obtained which revealed a CBC with WBC 4.46, H&H 12.9/37.9, platelets 108; she tested positive for adenovirus at that time. Head CT neck CT without acute findings. Chest CTA did not reveal a PE which did show RLL pneumonia, small right pleural effusion, mediastinal right-sided and hilar adenopathy, and persistent bronchiectasis of the RML. She was started on antibiotics during her hospital course, to include ceftriaxone and azithromycin. She was also provided with DuoNeb. #PNA/Pleural Effusion/? Hemoptysis Presenting with suspected new onset hemoptysis after "few day course" of coughing. 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 H/o PE, not on anticoagulation currently. No SOB at admission. H/o bronchiectasis. Awaiting further outside records. - Labs per outside record - CBC w/ leukopenia (4.46), H/H 12.9/37.9, plt 108 - BioFire per outside record (+) adenovirus - Chest CTA per outside record -- no evidence of PE, RLL pneumonia, small right pleural effusion, mediastinal right hilar adenopathy, bronchiectasis of the RML - O2 prn - no O2 at baseline: has been intermittently on room air for the past 24 hours -appreciate input from pulm will stop percussion vest and flutter valve and incentive spirometry will continue antibiotics: cef and azithromycin. - DuoNebs prn wheezing - Robitussin prn cough - Ceftriaxone IV + Azithromycin for PNA - Pulm consulted - appreciate input + recs -will continue above abx, no need for bronch at this time. Patient showing improvement and requiring less O2 Physical therapy is recommending rehab. #OA- Diclofenac gel prn - continue #Osteopenia- Vitamin D supp - continue #H/o corneal transplant - continue eye drops as prescribed Dispo: Admit, PCU VTE Prophylaxis: SCDs Admission and Anticipated Discharge Date Admission Date: November 19, 2024 Subjective Patient reports no new symptoms. Physical Exam Physical Exam: Constitutional: No acute distress HEENT: EOMI, PERRLA Respiratory system: Decreased air entry bilaterally, no wheeze, no rhonchi, positive crackles bilaterally CVS: S1-S2 positive, no murmurs or gallops Abdomen: Soft, nontender, nondistended, positive bowel sounds x4 Extremities: +2 pulses bilaterally radialis/ dorsalis pedis, no cyanosis, no edema Neuro: Awake alert oriented x3 Psych: Normal mood and affect G/U: Pure wick Skin: no rashes, warm and dry Lymphatic: no cervical or axillary lymphadenopathy Results & Data Results & Data Vital Signs (Past 12 Hours) Vital Signs Temp Pulse Pulse Resp BP BP Pulse Ox 11/22/24 19:30 11/22/24 19:24 72 16 92 11/22/24 19:01 36.9 C 72 18 118/72 95 11/22/24 15:25 36.8 C 76 18 114/81 95 11/22/24 13:40 85 11/22/24 11:31 36.9 C 71 113/75 97 11/22/24 11:30 Pulse Ox Pulse Ox O2 Del Method O2 Flow Rate O2 Flow Rate O2 Flow Rate 11/22/24 19:30 Nasal Cannula 1 11/22/24 19:24 Nasal Cannula 2 11/22/24 19:01 Nasal Cannula 11/22/24 15:25 Nasal Cannula 1 11/22/24 13:40 11/22/24 11:31 Room Air 11/22/24 11:30 94 84 L 1 1 PG Care Time/CCT Total # of Minutes Spent Total Time Spent with Patient: Total time spent is greater than 50% in coordination of care (as documented) at patient's floor/unit and/or counseling patient: Coding Level of Care Code 42518 SUB INP/OBS CARE 3/50MIN Diagnoses Pneumonia J18.9 Pleural effusion J90
[2024-11-23 06:56] LABS: Hematocrit (blood only) 36.3 % (37.0-47.0); Hemoglobin 12.4 g/dl (12.0-16.0); Mean Corpuscular Hemoglobin 30.2 pg (25.0-34.0); Mean Corpuscular Volume 88.5 fL (80.0-100.0); Platelet Count 135 K/uL (130-400); RDW Standard Deviation 39.5 fL (36.4-46.3); Red Blood Count 4.10 M/uL (4.20-5.40); White Blood Count 6.72 K/ul (4.8-10.8)
[2024-11-23 07:28] LABS: Anion Gap 6.0 (3-11); Blood Urea Nitrogen 12.0 mg/dl (6-23); Calcium 8.0 mg/dl (8.6-10.3); Carbon Dioxide 31.0 mmol/L (21-32); Chloride 101.0 mmol/L (98-107); Creatinine Clr Calc Pharmacy 59.1 ml/min; Glucose 104.0 mg/dl (70-99(Fasting)); Potassium 3.9 mmol/L (3.5-5.1); Sodium 138.0 mmol/L (136-145)
--- NOTE | 2024-11-23 07:41 | Pulmonology Progress Note ---
Date of Service November 23, 2024 Assessment & Plan (1) Multifocal pneumonia: (2) Bronchiectasis: (3) Acute respiratory failure with hypoxia: (4) Hemoptysis: Plan 84-year-old female was transferred from [facility] for hemoptysis Past medical history: Bronchiectasis, history of pulmonary nodules, history of PE not on any anticoagulation, osteopenia Pulmonary consulted for hemoptysis CT chest 11/19/2024 personally reviewed: Bilateral apical pleural scarring Bronchiectasis appreciated in the right middle lobe as well as inferior lobe of the lingula Dense consolidative process appreciated in the right lower lobe Patchy groundglass opacities in the left upper lobe as well as right lower lobe Right hilar lymphadenopathy --Acute hypoxic respiratory failure Likely secondary to multifocal pneumonia Continue with broad-spectrum antibiotics Oxygen supplementation to keep O2 saturation between 90-92% -- Hemoptysis with multifocal pneumonia As per the patient the hemoptysis has been mellowed down since coming to the hospital Urine Legionella negative -- Bronchiectasis Immunoglobulins within normal limit on 11/21/2024 Did have bronchoscopy done approximately [address] Huynh Using only chest vest at home. Not on Mucinex or hypertonic saline nebulized -- History of pulmonary emboli Was provoked from surgery S/p anticoagulation Plan: Urine Legionella negative Continue with antitussive medication [id number] Avoid flutter valve. Continue hold chest vest therapy also for the time being. Sputum culture negative to date Complete the course of antibiotic Recommend repeating a CAT scan of the chest in 6-8 months and following up with her load builder as an outpatient Case was discussed with RN and primary team No further recommendation from pulmonary perspective, will sign off Please call directly with any questions Please note the above document was generated using voice recognition software. It may contain grammatical, syntax or spelling errors.Any formal questions or concerns about the content, text or information contained within the body of this dictation should be directly addressed to the provider for clarification. Admission and Anticipated Discharge Date Admission Date: November 19, 2024 Subjective Patient seen and examined at bedside. No acute distress, no adverse events overnight Denies any more hemoptysis in the last 24 hours She was saturating 93% on 1 L nasal cannula. Overall she stated she is feeling better She is going to rehab when she has a bed available No nausea or vomiting Fair appetite Review of Systems 2 Review of Systems: All systems reviewed & are unremarkable except as noted in HPI & below Physical Exam 2 Physical Exam: Constitutional: No acute distress HEENT: EOMI, PERRLA Respiratory system: Decreased air entry bilaterally, no wheeze, no rhonchi, p ositive crackles bilaterally more on the right side CVS: S1-S2 positive, no murmurs or gallops Abdomen: Soft, nontender, nondistended, positive bowel sounds x4 Extremities: +2 pulses bilaterally radialis/ dorsalis pedis, no cyanosis, no edema Neuro: Awake alert oriented x3 Psych: Normal mood and affect G/U: Pure wick Skin: no rashes, warm and dry Lymphatic: no cervical or axillary lymphadenopathy Results & Data Results & Data Vital Signs (Past 12 Hours) Vital Signs Temp Pulse Pulse Resp BP BP Pulse Ox 11/23/24 07:20 70 18 97 11/23/24 05:47 67 11/23/24 02:59 36.9 C 76 17 125/69 91 11/23/24 00:00 74 11/22/24 22:36 37.0 C 72 18 128/75 97 O2 Del Method O2 Flow Rate 11/23/24 07:20 Nasal Cannula 2 11/23/24 05:47 11/23/24 02:59 Nasal Cannula 2 11/23/24 00:00 11/22/24 22:36 Nasal Cannula 5 Laboratory Results 11/23/24 06:37 11/23/24 06:37 PG Care Time/CCT Total # of Minutes Spent Total Time Spent with Patient: Total time spent is greater than 50% in coordination of care (as documented) at patient's floor/unit and/or counseling patient: Coding Level of Care Code 99777 SUB INP/OBS CARE 2/35MIN Diagnoses Multifocal pneumonia J18.8 Bronchiectasis J47.9 Acute respiratory failure with hypoxia J96.01 Hemoptysis R04.2
--- NOTE | 2024-11-23 17:53 | Hospitalist Progress Note ---
Date of Service November 23, 2024 Assessment & Plan (1) Pneumonia: (2) Pleural effusion: Plan 84-year-old female PMHx arthritis, bronchiectasis, osteopenia, pulmonary nodules, and PE not on anticoagulation who presents from [facility] after being admitted earlier in the day for new onset of "coughing up blood." During her hospital course at the outside facility, labs were obtained which revealed a CBC with WBC 4.46, H&H 12.9/37.9, platelets 108; she tested positive for adenovirus at that time. Head CT neck CT without acute findings. Chest CTA did not reveal a PE which did show RLL pneumonia, small right pleural effusion, mediastinal right-sided and hilar adenopathy, and persistent bronchiectasis of the RML. She was started on antibiotics during her hospital course, to include ceftriaxone and azithromycin. She was also provided with DuoNeb. #PNA/Pleural Effusion/? Hemoptysis Presenting with suspected new onset hemoptysis after "few day course" of coughing. 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 H/o PE, not on anticoagulation currently. No SOB at admission. H/o bronchiectasis. Awaiting further outside records. - Labs per outside record - CBC w/ leukopenia (4.46), H/H 12.9/37.9, plt 108 - [employer] per outside record (+) adenovirus - Chest CTA per outside record -- no evidence of PE, RLL pneumonia, small right pleural effusion, mediastinal right hilar adenopathy, bronchiectasis of the RML - O2 prn - no O2 at baseline: has been intermittently on room air for the past 24 hours -appreciate input from pulm will stop percussion vest and flutter valve and incentive spirometry will continue antibiotics: cef and azithromycin. - DuoNebs prn wheezing - Robitussin prn cough - Ceftriaxone IV + Azithromycin for PNA - Pulm consulted - appreciate input + recs -will continue above abx, Pulmonary states patient can be discharged. No Chest vest therapy at home for 1 week. Patient showing improvement and requiring less O2: now on 1 liter nacal Physical therapy is recommending rehab. #OA- Diclofenac gel prn - continue #Osteopenia- Vitamin D supp - continue #H/o corneal transplant - continue eye drops as prescribed Dispo: Admit, PCU VTE Prophylaxis: SCDs Admission and Anticipated Discharge Date Admission Date: November 19, 2024 Subjective Patient reports feeling better. Physical Exam Physical Exam: Constitutional: No acute distress HEENT: EOMI, PERRLA Respiratory system: Decreased air entry bilaterally, no wheeze, no rhonchi, positive crackles bilaterally CVS: S1-S2 positive, no murmurs or gallops Abdomen: Soft, nontender, nondistended, positive bowel sounds x4 Extremities: +2 pulses bilaterally radialis/ dorsalis pedis, no cyanosis, no edema Neuro: Awake alert oriented x3 Psych: Normal mood and affect G/U: Pure wick Skin: no rashes, warm and dry Lymphatic: no cervical or axillary lymphadenopathy Results & Data Results & Data Vital Signs (Past 12 Hours) Vital Signs Temp Pulse Pulse Resp BP Pulse Ox O2 Del Method 11/23/24 16:08 37 C 77 20 122/77 95 Nasal Cannula 11/23/24 13:03 81 11/23/24 12:17 36.8 C 82 19 107/70 96 Nasal Cannula 11/23/24 08:16 36.6 C 72 18 117/76 94 Nasal Cannula 11/23/24 07:20 70 18 97 Nasal Cannula O2 Flow Rate 11/23/24 16:08 1 11/23/24 13:03 11/23/24 12:17 1 11/23/24 08:16 1 11/23/24 07:20 2 PG Care Time/CCT Total # of Minutes Spent Total Time Spent with Patient: Total time spent is greater than 50% in coordination of care (as documented) at patient's floor/unit and/or counseling patient: Coding Level of Care Code 33683 SUB INP/OBS CARE 3/50MIN Diagnoses Pneumonia J18.9 Pleural effusion J90
[2024-11-24 07:44] LABS: Hematocrit (blood only) 36.7 % (37.0-47.0); Hemoglobin 12.4 g/dl (12.0-16.0); Mean Corpuscular Hemoglobin 30.5 pg (25.0-34.0); Mean Corpuscular Volume 90.4 fL (80.0-100.0); Platelet Count 147 K/uL (130-400); RDW Standard Deviation 40.9 fL (36.4-46.3); Red Blood Count 4.06 M/uL (4.20-5.40); White Blood Count 7.00 K/ul (4.8-10.8)
--- NOTE | 2024-11-24 07:50 | Pulmonology Progress Note ---
Date of Service November 24, 2024 Assessment & Plan (1) Multifocal pneumonia: (2) Bronchiectasis: (3) Acute respiratory failure with hypoxia: (4) Hemoptysis: Plan 84-year-old female was transferred from [facility] for hemoptysis Past medical history: Bronchiectasis, history of pulmonary nodules, history of PE not on any anticoagulation, osteopenia Pulmonary consulted for hemoptysis CT chest 11/19/2024 personally reviewed: Bilateral apical pleural scarring Bronchiectasis appreciated in the right middle lobe as well as inferior lobe of the lingula Dense consolidative process appreciated in the right lower lobe Patchy groundglass opacities in the left upper lobe as well as right lower lobe Right hilar lymphadenopathy --Acute hypoxic respiratory failure Likely secondary to multifocal pneumonia Continue with broad-spectrum antibiotics Oxygen supplementation to keep O2 saturation between 90-92% -- Hemoptysis with multifocal pneumonia As per the patient the hemoptysis has been mellowed down since coming to the hospital Urine Legionella negative -- Bronchiectasis Immunoglobulins within normal limit on 11/21/2024 Did have bronchoscopy done approximately [address] Huynh Using only chest vest at home. Not on Mucinex or hypertonic saline nebulized -- History of pulmonary emboli Was provoked from surgery S/p anticoagulation Plan: Continue with antitussive medication [id number] Avoid flutter valve. Sputum culture negative to date Continue with incentive spirometry Complete the course of antibiotic Recommend repeating a CAT scan of the chest in 6-8 months and following up with her manager of data as an outpatient Case was discussed with RN and primary team No further recommendation from pulmonary perspective, will sign off Please call directly with any questions Please note the above document was generated using voice recognition software. It may contain grammatical, syntax or spelling errors.Any formal questions or concerns about the content, text or information contained within the body of this dictation should be directly addressed to the provider for clarification. Admission and Anticipated Discharge Date Admission Date: November 19, 2024 Subjective Patient seen and examined at bedside. No acute distress, no adverse events overnight Denies any hemoptysis. She was very upset that they did not find a bed yet for her to be out of the hospital Appetite is fair No nausea or vomiting Denies any chest pain No headache She was saturating 94% on 2 L nasal cannula at rest Review of Systems 2 Review of Systems: All systems reviewed & are unremarkable except as noted in Subjective Physical Exam 2 Physical Exam: Constitutional: No acute distress HEENT: EOMI, PERRLA Respiratory system: Decreased air entry bilaterally, no wheeze, no rhonchi, p ositive crackles bilaterally more on the right side CVS: S1-S2 positive, no murmurs or gallops Abdomen: Soft, nontender, nondistended, positive bowel sounds x4 Extremities: +2 pulses bilaterally radialis/ dorsalis pedis, no cyanosis, no edema Neuro: Awake alert oriented x3 Psych: Normal mood and affect G/U: Pure wick Skin: no rashes, warm and dry Lymphatic: no cervical or axillary lymphadenopathy Results & Data Results & Data Vital Signs (Past 12 Hours) Vital Signs Temp Pulse Pulse Resp BP Pulse Ox O2 Del Method 11/24/24 07:22 74 15 93 Nasal Cannula 11/24/24 05:14 69 11/24/24 03:45 37.1 C 68 19 112/70 92 Nasal Cannula 11/23/24 22:35 37.2 C 73 18 116/77 95 Nasal Cannula 11/23/24 21:52 76 11/23/24 21:38 Nasal Cannula 11/23/24 19:51 72 18 95 Nasal Cannula O2 Flow Rate 11/24/24 07:22 4 11/24/24 05:14 11/24/24 03:45 1 11/23/24 22:35 1 11/23/24 21:52 11/23/24 21:38 1 11/23/24 19:51 1 Laboratory Results 11/24/24 06:52 PG Care Time/CCT Total # of Minutes Spent Total Time Spent with Patient: Total time spent is greater than 50% in coordination of care (as documented) at patient's floor/unit and/or counseling patient: Coding Level of Care Code 96076 SUB INP/OBS CARE 2/35MIN Diagnoses Multifocal pneumonia J18.8 Bronchiectasis J47.9 Acute respiratory failure with hypoxia J96.01 Hemoptysis R04.2
[2024-11-24 08:00] LABS: Anion Gap 4.0 (3-11); Blood Urea Nitrogen 12.0 mg/dl (6-23); Calcium 8.3 mg/dl (8.6-10.3); Carbon Dioxide 31.0 mmol/L (21-32); Chloride 101.0 mmol/L (98-107); Creatinine Clr Calc Pharmacy 61.2 ml/min; Glucose 97.0 mg/dl (70-99(Fasting)); Potassium 4.0 mmol/L (3.5-5.1); Sodium 136.0 mmol/L (136-145)
--- NOTE | 2024-11-24 10:08 | Hospitalist Progress Note ---
Date of Service November 24, 2024 Assessment & Plan (1) Pneumonia: (2) Pleural effusion: Plan 84-year-old female PMHx arthritis, bronchiectasis, osteopenia, pulmonary nodules, and PE not on anticoagulation who presents from [facility] after being admitted earlier in the day for new onset of "coughing up blood." During her hospital course at the outside facility, labs were obtained which revealed a CBC with WBC 4.46, H&H 12.9/37.9, platelets 108; she tested positive for adenovirus at that time. Head CT neck CT without acute findings. Chest CTA did not reveal a PE which did show RLL pneumonia, small right pleural effusion, mediastinal right-sided and hilar adenopathy, and persistent bronchiectasis of the RML. She was started on antibiotics during her hospital course, to include ceftriaxone and azithromycin. She was also provided with DuoNeb. #PNA/Pleural Effusion/? Hemoptysis Presenting with suspected new onset hemoptysis after "few day course" of coughing. 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 H/o PE, not on anticoagulation currently. No SOB at admission. H/o bronchiectasis. Awaiting further outside records. - Labs per outside record - CBC w/ leukopenia (4.46), H/H 12.9/37.9, plt 108 - [employer] per outside record (+) adenovirus - Chest CTA per outside record -- no evidence of PE, RLL pneumonia, small right pleural effusion, mediastinal right hilar adenopathy, bronchiectasis of the RML - O2 prn - no O2 at baseline: has been intermittently on room air for the past 24 hours -appreciate input from pulm will stop percussion vest and flutter valve and incentive spirometry will continue antibiotics: cef and azithromycin. - DuoNebs prn wheezing - Robitussin prn cough - Ceftriaxone IV + Azithromycin for PNA - Pulm consulted - appreciate input + recs -will continue above abx, Pulmonary states patient can be discharged. No Chest vest therapy at home for 1 week. Patient showing improvement and requiring less O2: now on 1 liter nacal Physical therapy is recommending rehab. #Acute pulmonary emboli update CT scan showed high clot burden bilateral pulnonary emboli with right heart strain. I called [facility] to discuss catheter directed thrombolytic. They stated that given her risk and benefit and that her vitals are stable on 6 liters, they recommended to continue anticoagulation. If her oxygenation worsened or clinically worsened to call back. Had extensive update with family on multiple occasions, #syncope Vasovagal, may have superimposed tachybrady syndrome. will consult cardiology WIll obtain EKG, BMP, Mag, Phos, Trop, CTA chest to rule out Pulmonary emboli #OA- Diclofenac gel prn - continue #Osteopenia- Vitamin D supp - continue #H/o corneal transplant - continue eye drops as prescribed Dispo: Admit, PCU VTE Prophylaxis: SCDs Admission and Anticipated Discharge Date Admission Date: November 19, 2024 Subjective Code purple was called. Patient had an episode of syncope after going to the bathroom. Patient was tachycardic and then became bradycardic around 9:57 for 35 seconds. Physical Exam Physical Exam: Constitutional: No acute distress HEENT: EOMI, PERRLA Respiratory system: Decreased air entry bilaterally, no wheeze, no rhonchi, positive crackles bilaterally CVS: S1-S2 positive, no murmurs or gallops Abdomen: Soft, nontender, nondistended, positive bowel sounds x4 Extremities: +2 pulses bilaterally radialis/ dorsalis pedis, no cyanosis, no edema Neuro: Awake alert oriented x3 Psych: Normal mood and affect G/U: Pure wick Skin: no rashes, warm and dry Lymphatic: no cervical or axillary lymphadenopathy Results & Data Results & Data Vital Signs (Past 12 Hours) Vital Signs Temp Pulse Pulse Resp BP Pulse Ox O2 Del Method 11/24/24 07:52 36.9 C 79 128/76 95 Nasal Cannula 11/24/24 07:22 74 15 93 Nasal Cannula 11/24/24 05:14 69 11/24/24 03:45 37.1 C 68 19 112/70 92 Nasal Cannula 11/23/24 22:35 37.2 C 73 18 116/77 95 Nasal Cannula O2 Flow Rate 11/24/24 07:52 2 11/24/24 07:22 4 11/24/24 05:14 11/24/24 03:45 1 11/23/24 22:35 1 PG Care Time/CCT Total # of Minutes Spent Total Time Spent with Patient: Total time spent is greater than 50% in coordination of care (as documented) at patient's floor/unit and/or counseling patient: Prolonged Care Time Prolonged Care Time: Yes Total Prolonged Care Time: 120 8:57 to 9:57 11:25 to 11:45 1:30 to 1:45 15:45 to 16:10 Coding Level of Care Code 22528 SUB INP/OBS CARE 3/50MIN (25 - SIGNIFICANT, SEPARATELY IDENTIFIABLE ) Diagnoses Pneumonia J18.9 Pleural effusion J90 Additional Codes Prolonged Care Time - Prolonged Care Time: Yes ([id number])
[2024-11-24] MEDS: OPTIRAY 320 125ml IV ONE (10:29)
[2024-11-24 10:43] LABS: Hematocrit (blood only) 39.2 % (37.0-47.0); Hemoglobin 13.0 g/dl (12.0-16.0); Mean Corpuscular Hemoglobin 30.2 pg (25.0-34.0); Mean Corpuscular Volume 91.2 fL (80.0-100.0); Platelet Count 135 K/uL (130-400); RDW Standard Deviation 41.5 fL (36.4-46.3); Red Blood Count 4.30 M/uL (4.20-5.40); White Blood Count 6.97 K/ul (4.8-10.8)
--- NOTE | 2024-11-24 10:52 | CT Scan Report ---
CT angio chest PE protocol CT DOSE: 650.76 mGy.cm HISTORY: 84 years-old Female with PE. Acute shortness of breath TECHNIQUE: Multiple CTA images of the chest were obtained after the intravenous administration of 118 ml Optiray. Coronal and sagittal MIPS were obtained from the axial data set and were submitted for review. All measurements were obtained according to NASCET criteria. A dose lowering technique was u tilized adhering to the principles of ALARA. COMPARISON: CTA chest 11/19/2024, 11/18/2024 FINDINGS: CTA: Heart is mildly enlarged. There is straightening of the intraventricular septum with dilation of the right heart chambers. No thoracic aortic aneurysm or dissection. The amount of pulmonary emboli are n oted bilaterally which are new from prior involving the main, segmental and subsegmental branches. CT CHEST: No thyroid nodule. Soft tissue density within the right hilar distribution on image 111 series 4 db ures 4.9 cm suggestive of resolving consolidation. There is improved aeration with decreased consolid ation in the adjacent subpleural right lower lobe. Patchy groundglass densities with tree-in-bud nodu les are most pronounced within the lung bases. The multifocal groundglass densities have progressed, notably within the left upper lobe measuring 4.8 cm on image 148 series 4. Small pleural effusions wi th dependent bibasilar consolidation and intralobular septal thickening. Central airways are patent. Bronchiectasis of the right middle lobe and lingula again seen. No acute upper abdominal abnormality. No acute fracture. IMPRESSION: 1. Large amount of bilateral pulmonary emboli are new from prior and there is evidence of associated right heart strain. 2. Bronchiectasis with mucus plugging and tree-in-bud nodules redemonstrated suggestive of a chronic TE infection. 3. Progressive patchy groundglass opacities, most pronounced in the left upper lobe are also likely i nfectious or inflammatory. 4. Small pleural effusions with dependent bibasilar consolidation/atelectasis. 5. Improved aeration of the right lower lobe with persistent ill-defined right perihilar consolidatio n. One-month follow-up chest CT recommended. ACT 112: Negative or not required by law. The above report was generated using voice recognition software. It may contain grammatical, syntax o r spelling errors. Electronically signed by: Fabian Mcadams M.D. 11/24/2024 10:50 AM
[2024-11-24 10:58] LABS: Alanine Aminotransferase 26.0 U/L (7-52); Albumin Globulin Ratio 0.8 (0.9-2); Alkaline Phosphatase 66.0 U/L (34-104); Anion Gap 8.0 (3-11); Bilirubin,Total 0.6 mg/dl (0.2-1.0); Blood Urea Nitrogen 11.0 mg/dl (6-23); Calcium 8.3 mg/dl (8.6-10.3); Carbon Dioxide 30.0 mmol/L (21-32); Chloride 97.0 mmol/L (98-107); Creatinine Clr Calc Pharmacy 52.0 ml/min; Globulin 4.1 gm/dl (2.5-4.0); Glucose 117.0 mg/dl (70-99(Fasting)); Magnesium 2.1 mg/dl (1.7-2.4); Potassium 3.6 mmol/L (3.5-5.1); Sodium 135.0 mmol/L (136-145); Total Protein 7.4 gm/dl (6.0-8.3)
[2024-11-24] MEDS: ONDANSETRON INJ 2 MG/ML 2 ML VIAL IV PRN (11:08)
--- NOTE | 2024-11-24 11:08 | Cardiology Consultation ---
Date of Consultation November 24, 2024 Assessment & Plan (1) Bilateral pulmonary embolism: (2) Pulmonary hypertension: (3) Left leg DVT: (4) Hemoptysis: (5) Multifocal pneumonia: Plan I will review her echo for signs of right heart strain but I suspect that we will see that based on her. Will also assess her RV and pulmonary artery pressures. She is already been started on IV heparin. Will need to follow her oxygen saturations. There is been no evidence of hemodynamic compromise at this time. Continue current care as you are already doing. Watch for worsening of the hemoptysis while she is on IV heparin. I would wait at least 24 hours before starting NOAC on her to make sure she tolerates this. Thank you for allowing me to participate in her care. I will follow-up with her post discharge. History of Present Illness Reason for Consultation: evaluate for possible tachybradycardia Attending Physician: Nnamdi Hartman History of Present Illness Enid Sands is an 84-year-old woman who was transferred here from [facility] several days ago with a pneumonia. She presented initially with hemoptysis and generally not feeling well for the last month or so according to her daughter. In her usual state of health Enid walks 3 miles a day and is very active does all of her normal chores around her house but this has not been like her. There was discussion about possibly getting her discharged to home today she was in the bathroom in her room sitting on the commode when she went to stand up she suddenly collapsed. On the monitor she initially became bradycardic with heart rates in the 40s to 50s but still in sinus rhythm and then developed tachycardia again. She did lose consciousness for about 2 minutes according to the nursing staff. Her post syncopal EKG shows sinus tachycardia with ST-T wave changes. She was sent for a stat CTA which is positive for pulmonary embolus. Currently she is on oxygen looks tired but is in no apparent distress. Her history was discussed with the patient as well as her daughter. 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 She sees Dr. Viviana Olguin in [place] for this and was supposed to be getting Botox injections to treat this. She had a history of a prior surgery about 3 years ago and developed a pulmonary embolus after that surgery. To her knowledge she does not have prior cardiac issues. She has not had cardiac testing stress test or echo in the past. Allergies Allergy/AdvReac Type Severity Reaction Status Date / Time No Known Allergies Allergy Verified 01/15/18 10:56 Home Medications Medication Instructions Recorded Confirmed Type calcium ER 600 mg (as carb,cit)-D3 1 tab PO QAM 01/12/18 11/19/24 History 12.5 mcg (500 unit) tablet, ext.rel (Citracal-D3 Slow Release) diclofenac sodium 1 % topical gel 2 g topical QID PRN Pain 01/12/18 11/19/24 History (Arthritis Pain (diclofenac)) ibuprofen 200 mg capsule 600 mg PO QID PRN Pain 01/12/18 11/19/24 History prednisolone acetate 1 % eye 1 drp ophthalmic (eye) Q12 01/15/18 11/19/24 History drops,suspension (Pred Forte) Patient History Medical History Hx of cataract both eyes Hx of staphylococcal infection right eye Hyperlipidemia states no longer takes meds d/t muscle aching Surgical History Hx of colonoscopy Hx of tonsillectomy Hx of appendectomy Hx of cornea transplant x2 right eye Social History Smoking Status: Never smoker Hx Alcohol Use: No Hx Substance Use: No Preferred Language: Turkmen Communication Ability: Effective Shutdown Coordinator Required: No Beliefs That Will Affect Care: None Current Living Situation: Family Feels Safe at Home: Yes Safety Concerns: Feels Safe At This Time Assistive Devices: Other Assistive Devices Comment: partial dentures upper Review of Systems Review of Systems: All systems reviewed & are unremarkable except as noted in HPI & below Physical Exam Neck: Positive JVD Respiratory: Diminished breath sounds at the bases Cardiovascular: Heart is tachycardic murmurs are not appreciated She has multiple varicose veins noted bilaterally there is no edema Results & Data Vital Signs (Past 12 Hours) Vital Signs Temp Pulse Pulse Resp BP Pulse Ox O2 Del Method 11/24/24 07:52 36.9 C 79 128/76 95 Nasal Cannula 11/24/24 07:22 74 15 93 Nasal Cannula 11/24/24 05:14 69 11/24/24 03:45 37.1 C 68 19 112/70 92 Nasal Cannula O2 Flow Rate 11/24/24 07:52 2 11/24/24 07:22 4 11/24/24 05:14 11/24/24 03:45 1 Laboratory Results Abnormal lab results 11/24/24 11/24/24 11/24/24 Range/Units 06:52 10:00 10:20 RBC 4.06 L (4.20-5.40) M/uL Hct 36.7 L (37.0-47.0) % Sodium 135 L (136-145) mmol/L Chloride 97 L (98-107) mmol/L Glucose 117 H (70-99(Fasting)) mg/dl POC Glucose 121 H (70-99) mg/dl Calcium 8.3 L 8.3 L (8.6-10.3) mg/dl C-Reactive Protein 6.80 H (0-0.5) mg/dl Albumin 3.3 L (3.4-5.0) gm/dl Globulin 4.1 H (2.5-4.0) gm/dl Albumin/Globulin Ratio 0.8 L (0.9-2) Diagnostic Findings CTA :1. Large amount of bilateral pulmonary emboli are new from prior and there is evidence of associated right heart strain. 2. Bronchiectasis with mucus plugging and tree-in-bud nodules redemonstrated suggestive of a chronic TE infection. 3. Progressive patchy groundglass opacities, most pronounced in the left upper lobe are also likely infectious or inflammatory. 4. Small pleural effusions with dependent bibasilar consolidation/atelectasis. 5. Improved aeration of the right lower lobe with persistent ill-defined right perihilar consolidation. One-month follow-up chest CT recommended. Doppler of the legs:Likely acute DVT within the left lower leg as above. 2. No right-sided DVT identified. Medications Administered Current Inpatient Medications Acetaminophen (Acetaminophen 500 Mg Tab) 1,000 mg PO Q8H PRN PRN Reason: Pain/fever Stop: 12/19/24 23:06 Last Admin: 11/21/24 02:49 Dose: 1,000 mg Albuterol (Albut/Ipratrop 3mg/0.5mg Neb 3 Ml Vial) 3 ml NEB Q6R PRN; Protocol PRN Reason: Wheezing Stop: 12/19/24 23:31 Azithromycin (Azithromycin 250 Mg Tab) 500 mg PO QAM [facility] Stop: 11/25/24 08:59 Last Admin: 11/24/24 08:17 Dose: 500 mg Calcium/Vitamin D (Calcium 600mg + Vit D 400 Iu Tab) 1 tab PO QAM [facility] Stop: 12/20/24 08:59 Last Admin: 11/24/24 08:17 Dose: 1 tab Diclofenac Sodium (Diclofenac Sod 1% Gel 100 Gm Tube) 2 gm EXT QID PRN; Kris col PRN Reason: Pain Stop: 12/19/24 23:36 Formoterol Fumarate (Formoterol 20 Mcg/2 Ml Vial) 20 mcg NEB BIDR [facility] Stop: 12/20/24 18:59 Last Admin: 11/24/24 07:22 Dose: 20 mcg Guaifenesin/Codeine Phosphate (Guaifenesin/Codeine 100mg/10mg 5ml Udc) 10 ml PO Q8 [facility] Stop: 12/20/24 13:59 Last Admin: 11/24/24 05:08 Dose: 10 ml Heparin Sodium (Porcine) (Heparin Sod (Porcine) 1000 Unit/Ml) 1 units IV NOW ONE Stop: 11/24/24 11:13 Ceftriaxone Sodium (Rocephin) 2,000 mg in 50 mls @ 100 mls/hr IV Q24H [facility] Stop: 11/24/24 23:29 Last Infusion: 11/23/24 21:59 Dose: Infused Heparin Sodium/Dextrose (Heparin 13604 Unit/500 Ml D5w) 25,000 units in 500 mls @ 0.02 mls/hr IV .Q24H [facility]; Protocol Stop: 12/24/24 11:14 Ondansetron HCl (Ondansetron Inj 2 Mg/Ml 2 Ml Vial) 4 mg IV Q6H PRN PRN Reason: Nausea And Vomiting Stop: 12/24/24 10:54 Prednisolone Acetate (Prednisolone Acetate 1% Op Susp 5 Ml Btl) 1 drops OP Q12 [facility] Stop: 12/20/24 08:59 Last Admin: 11/24/24 08:17 Dose: 1 drops ECG Additional Comments: Sinus tachycardia baseline ST-T wave changes
[2024-11-24] MEDS: HEPARIN 25000 UNIT/500 ML D5W 25,000 UNITS/500 ML BAG IV SCH (11:26)
[2024-11-24] MEDS: Heparin IV Adult Wt-Based Standard w/ INITIAL Bolus Protocol IV STA (11:35)
--- NOTE | 2024-11-24 11:43 | Communication Note ---
Date of Service: November 24, 2024 Critical care addendum: gM aranda was called around 9:35 AM. As per the nurse patient came back from the commode. She was initially tachycardic and then bradycardic with hypotension At the time of examination patient's oxygenation was 82-83%, oxygen was increased to 15 L and changed to oxime mask. Initial systolic blood pressure was in the mid 90s. Heart rate was already in the 90s. She was started on 500 mL of bolus Plasma-Lyte Patient was lethargic but easily arousable and following all the commands. She denied any nausea or vomiting No dizziness, no vertigo. No blurry vision. Was able to answer all the questions appropriately and move all extremities to command. Constitutional: No acute distress HEENT: EOMI, PERRLA Respiratory system: Decreased air entry bilaterally, no wheeze, no rhonchi, positive crackles bilateral lower lobe CVS: S1-S2 positive, tachycardia Abdomen: Soft, nontender, nondistended, positive bowel sounds x4 Extremities: +2 pulses bilaterally radialis/ dorsalis pedis, no cyanosis, minimal pitting edema bilateral lower extremity Neuro: Awake alert oriented x3 cranial nerves II to XII grossly intact Psych: Normal mood and affect G/U: No Price Plan: Patient came in with hemoptysis and she was not on any anticoagulation because of the same. She has history of pulmonary emboli in the past. CTA chest along with Doppler bilateral lower extremities will be ordered to be done stat. Complete the bolus of 100 mL Plasma-Lyte. EKG, troponin, CBC, CMP, BNP, mag and Phos ordered for the patient Patient's daughter who was in the room initially and outside of the room during mg aranda was updated regarding the condition plan. All questions and queries were answered in depth I have personally spent 40 minutes of critical care time in the direct management of this patient. This is a life/limb threatening event. This includes time spent evaluating modesta ent, direct bedside care, chart review, placing orders, interpretation of diagnostic studies, discussion with consultants, patient, and family members, as well as other required patient management activities. This time is exclusive of all separately billable procedures, and teaching time and separate from and in addition to any other critical care service time. Please note the above document was generated using voice recognition software. It may contain grammatical, syntax or spelling errors. Coding Level of Care Code 03535 CRITICAL CARE 1ST 30-74M
[2024-11-24] MEDS: HEPARIN SOD (PORCINE) 1000 UNIT/ML IV ONE (11:47)
--- NOTE | 2024-11-24 13:35 | Communication Note ---
Date of Service: November 24, 2024 Critical care addendum: CT chest 11/24/2024 personally reviewed: Bilateral main pulmonary artery pulmon kirk emboli appreciated Groundglass opacity in the left upper lobe, likely early infarct Bilateral apical pleural scarring more on the right side Bronchiectasis of the right middle lobe Small left-sided pleural effusion Improvement in the right lower lobe consolidative process No significant mediastinal lymphadenopathy Troponin negative, BNP mildly elevated sPESI score High. Given the increased oxygen requirement. 2D echo has been ordered but there was mild right heart strain on the CT chest Patient would fall into moderate- High PE with moderate to high clot burden and right heart strain Elevated BNP as well as increased oxygen requirement, she would benefit from EKOS Patient as well as patient's daughter were updated regarding this in the presen ce of [facility]. They are interested in asking IR at [place] to see if they will be willing to accept the patient for the same Continue with heparin drip in the interim Case was discussed with primary team Please note the above document was generated using voice recognition software. It may contain grammatical, syntax or spelling errors.Any formal questions or concerns about the content, text or information contained within the body of this dictation should be directly addressed to the provider for clarification. Coding Level of Care Code None
--- NOTE | 2024-11-24 13:52 | Ultrasound Report ---
US venous doppler UE BI HISTORY: 84 years-old Female new pulnoary embolism/ COMPARISON: CTA chest same day TECHNIQUE: Multiple real-time sonographic images of the bilateral upper extremity deep venous structu res were obtained assessing grayscale appearance, color and spectral flow FINDINGS: No deep venous thrombi identified within the bilateral internal jugular or subclavian veins. IMPRESSION: No DVT identified. ACT 112: Negative or not required by law. The above report was generated using voice recognition software. It may contain grammatical, syntax o r spelling errors. Electronically signed by: Fabian Mcadams M.D. 11/24/2024 1:51 PM
--- NOTE | 2024-11-24 13:54 | Ultrasound Report ---
BILATERAL LOWER EXTREMITY VENOUS DOPPLER HISTORY: Acute pulmonary embolus syncope/ off anticoagulatiom COMPARISON STUDY: None. FINDINGS: There is normal compressibility, flow, and augmentation within the right lower extremity de ep venous structures. Occlusive likely acute deep venous thrombi noted within the left common femoral, superficial femoral, and popliteal veins. Probable additional thrombi within the peroneal vein. IMPRESSION: 1. Likely acute DVT within the left lower leg as above. 2. No right-sided DVT identified. ACT 112: Negative or not required by law. Electronically signed by: Fabian Mcadams M.D. 11/24/2024 1:52 PM
[2024-11-24 16:55] LABS: ANTI-Xa, UFH(UnfractionatedHep 0.88 IU/ml (0.3-0.7)
[2024-11-25 01:49] LABS: ANTI-Xa, UFH(UnfractionatedHep 0.47 IU/ml (0.3-0.7)
--- NOTE | 2024-11-25 08:08 | Pulmonology Progress Note ---
Date of Service November 25, 2024 Assessment & Plan (1) Multifocal pneumonia: (2) Bronchiectasis: (3) Acute respiratory failure with hypoxia: (4) Hemoptysis: (5) Pulmonary hypertension: (6) Bilateral pulmonary embolism: Plan Impression: 84-year-old female was transferred from [facility] for hemoptysis. This was resolving but the patient developed a hemodynamically significant PE and has been initiated on heparin. Recommendations: 1. Acute PE with RV strain: Patient has risk factors for deterioration including oxygen requirement, elevated biomarkers, and RV strain noted on echocardiogram. Case was discussed apparently with [facility] for potential catheter directed thrombectomy however they recommended anticoagulation per report. Continue heparin for an additional 24 to 48 hours and if stable could consider transition to oral anticoagulation at that point in time. Given the severity of this event and the fact that it is recurrent, would recommend lifelong anticoagulation. Pulmonary hypertension, with follow-up echocardiogram in 3 months to assess PA pressures. 2. Hemoptysis: Likely secondary to bronchiectasis. Could be exacerbated by heparin but seems reasonably well-tolerated currently and risk-benefit would favor continuing anticoagulation. Continue to monitor. 3. Hypoxemia: Multifactorial due to #1 and bronchiectasis. Wean as 4. Bronchiectasis: Patient is currently on Perforomist DuoNebs and azithromycin. Cultures no growth to date. Will follow with you. Admission and Anticipated Discharge Date Admission Date: November 19, 2024 Subjective The patient seen and examined. EMR reviewed. 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 Patient reports that she is feeling well. She denies any syncope or presyncope. No chest pain or palpitations. She is been up to the chair without presyncopal episodes. She is coughing and expectorating some dark blood but no maykel fresh hemoptysis. Her oxygen requirement is stable. She denies fevers, chills, or night sweats Review of Systems 2 Review of Systems: All systems reviewed & are unremarkable except as noted in Subjective Physical Exam 2 Constitutional: WD/WN, vitals as above Neck: trachea midline, no thyromegaly Respiratory: no respiratory distress, no labored breathing, no cough and not tachypneic Auscultation: + rhonchi Cardiovascular: RRR, no murmur, no edema Gastrointestinal (Abdomen): normal bowel sounds, soft, nontender, no hepatosplenomegaly Musculoskeletal: Extremities: extremities normal to inspection Skin: no rashes, warm and dry Neurologic: Nonfocal exam Lymphatic: no cervical lymphadenopathy Results & Data Results & Data Vital Signs (Past 12 Hours) Vital Signs Temp Pulse Pulse Resp BP Pulse Ox O2 Del Method 11/25/24 07:34 66 18 94 Nasal Cannula 11/25/24 07:19 36.7 C 67 16 111/68 95 Nasal Cannula 11/25/24 03:00 36.7 C 71 18 116/65 91 Nasal Cannula 11/24/24 22:56 36.7 C 74 16 103/63 97 Nasal Cannula 11/24/24 21:41 83 O2 Flow Rate 11/25/24 07:34 4 11/25/24 07:19 4 11/25/24 03:00 4 11/24/24 22:56 11/24/24 21:41 Laboratory Results 11/24/24 10:20 11/24/24 10:20 Diagnostic Findings Echo 11/24/2024: EF 60 to 65%. Moderate to severe TR with right ventricular systolic pressure greater than 60 Right ventricle moderately dilated with normal right ventricular systolic function. Right atrium moderately dilated PG Care Time/CCT Total # of Minutes Spent Total Time Spent with Patient: Total time spent is greater than 50% in coordination of care (as documented) at patient's floor/unit and/or counseling patient: Coding Level of Care Code 92142 SUB INP/OBS CARE 2/35MIN Diagnoses Multifocal pneumonia J18.8 Bronchiectasis J47.9 Acute respiratory failure with hypoxia J96.01 Hemoptysis R04.2 Pulmonary hypertension I27.20 Bilateral pulmonary embolism I26.99
--- NOTE | 2024-11-25 08:18 | Electrocardiogram Report ---
Test Reason : Blood Pressure : */* mmHG Vent. Rate : 96 BPM Atrial Rate : 96 BPM P-R Int : 122 ms QRS Dur : 72 ms QT Int : 318 ms P-R-T Axes : 74 54 150 degrees QTcB Int : 401 ms Normal sinus rhythm Nonspecific ST and T wave abnormality Abnormal ECG When compared with ECG of 22-Apr-2017 16:49, IL interval has increased Non-specific change in ST segment in Inferior leads Nonspecific T wave abnormality now evident in Inferior leads Nonspecific T wave abnormality, worse in Anterolateral leads Confirmed by Kathe Brand (Rashaun) on 11/25/2024 8:18:11 AM Referred By: Josey David Confirmed By: Kathe Brand
[2024-11-25 08:29] LABS: ANTI-Xa, UFH(UnfractionatedHep 0.53 IU/ml (0.3-0.7)
--- NOTE | 2024-11-25 10:29 | Cardiology Progress Note ---
Date of Service November 25, 2024 Assessment & Plan (1) Bilateral pulmonary embolism: (2) Pulmonary hypertension: (3) Left leg DVT: (4) Hemoptysis: (5) Multifocal pneumonia: Plan Ms. Sands's echo did reveal high pulmonary pressures and severe TR, likely secondary to her PE burden. She actually feels fairly well today and is not having any chest pain or sob. We will repeat echo tomorrow to reassess her right heart. Case was discussed apparently with [facility] for potential catheter directed thrombectomy however they recommended anticoagulation per report. She continues to require 4L NC. Her blood pressures have been stable. She continues on heparin. She had what sounded like a clot or old blood with coughing today but no maykel bleeding. Hemoglobin has been stable. Her troponin peaked at 223 and trended down. She is not having any concerning anginal symptoms. Her bnp is slightly elevated likely due to the pulmonary pressures created by her PE. She appears relatively euvolemic Admission and Anticipated Discharge Date Admission Date: November 19, 2024 Subjective She really has no complaints this morning. She is sitting up to breakfast. She denies sob or chest pain. SR on the monitor. She is still coughing, one dark/black blood clot in the her sputum this morning but no maykel bleed. Review of Systems Review of Systems: All systems reviewed & are unremarkable except as noted in HPI & below Physical Exam Constitutional: WD/WN, vitals as above Respiratory: normal respiratory effort, lungs clear to auscultation Cardiovascular: RRR, no murmur, no edema Skin: no rashes, warm and dry Neurologic: moves all extremities and awake Psychiatric: A+Ox3, euthymic affect Results & Data Vital Signs (Past 12 Hours) Vital Signs Temp Pulse Pulse Resp BP Pulse Ox O2 Del Method 11/25/24 07:34 66 18 94 Nasal Cannula 11/25/24 07:20 Nasal Cannula 11/25/24 07:19 36.7 C 67 16 111/68 95 Nasal Cannula 11/25/24 05:31 63 11/25/24 03:00 36.7 C 71 18 116/65 91 Nasal Cannula 11/24/24 22:56 36.7 C 74 16 103/63 97 Nasal Cannula O2 Flow Rate 11/25/24 07:34 4 11/25/24 07:20 5 11/25/24 07:19 4 11/25/24 05:31 11/25/24 03:00 4 11/24/24 22:56
--- NOTE | 2024-11-25 23:27 | Hospitalist Progress Note ---
Date of Service November 25, 2024 Assessment & Plan (1) Pneumonia: (2) Pleural effusion: Plan 84-year-old female PMHx arthritis, bronchiectasis, osteopenia, pulmonary nodules, and PE not on anticoagulation who presents from [facility] after being admitted earlier in the day for new onset of "coughing up blood." During her hospital course at the outside facility, labs were obtained which revealed a CBC with WBC 4.46, H&H 12.9/37.9, platelets 108; she tested positive for adenovirus at that time. Head CT neck CT without acute findings. Chest CTA did not reveal a PE which did show RLL pneumonia, small right pleural effusion, mediastinal right-sided and hilar adenopathy, and persistent bronchiectasis of the RML. She was started on antibiotics during her hospital course, to include ceftriaxone and azithromycin. She was also provided with DuoNeb. #PNA/Pleural Effusion/? Hemoptysis Presenting with suspected new onset hemoptysis after "few day course" of coughing. Does follow with wide load escort who encouraged her to utilize percussion vest daily, she is compliant. H/o PE, not on anticoagulation currently. No SOB at admission. H/o bronchiectasis. Awaiting further outside records. - Labs per outside record - CBC w/ leukopenia (4.46), H/H 12.9/37.9, plt 108 - [employer] per outside record (+) adenovirus - Chest CTA per outside record -- no evidence of PE, RLL pneumonia, small right pleural effusion, mediastinal right hilar adenopathy, bronchiectasis of the RML - O2 prn - no O2 at baseline: has been intermittently on room air for the past 24 hours -appreciate input from pulm will stop percussion vest and flutter valve and incentive spirometry will continue antibiotics: cef and azithromycin. - DuoNebs prn wheezing - Robitussin prn cough - Ceftriaxone IV + Azithromycin for PNA - Pulm consulted - appreciate input + recs -will continue above abx, Pulmonary states patient can be discharged. No Chest vest therapy at home for 1 week. Patient showing improvement and requiring less O2: now on 1 liter nacal Physical therapy is recommending rehab. #Acute pulmonary emboli update CT scan showed high clot burden bilateral pulnonary emboli with right heart strain. I called [facility] to discuss catheter directed thrombolytic. They stated that given her risk and benefit and that her vitals are stable on 6 liters, they recommended to continue anticoagulation. If her oxygenation worsened or clinically worsened to call back. Had extensive update with family on multiple occasions, Called [facility] again on 11/25, ok to remain on anticoagulation. will continue to monitor. Trop peaked at over 200, and now downtrending. #syncope Vasovagal, may have superimposed tachybrady syndrome. will consult cardiology WIll obtain EKG, BMP, Mag, Phos, Trop, CTA chest to rule out Pulmonary emboli #OA- Diclofenac gel prn - continue #Osteopenia- Vitamin D supp - continue #H/o corneal transplant - continue eye drops as prescribed Dispo: Admit, PCU VTE Prophylaxis: SCDs Admission and Anticipated Discharge Date Admission Date: November 19, 2024 Subjective Patient now with productive cough with small amounts of blood tinged sputum. Physical Exam Physical Exam: Constitutional: No acute distress HEENT: EOMI, PERRLA Respiratory system: improved breath sounds CVS: S1-S2 positive, no murmurs or gallops Abdomen: Soft, nontender, nondistended, positive bowel sounds x4 Extremities: +2 pulses bilaterally radialis/ dorsalis pedis, no cyanosis, no edema Neuro: Awake alert oriented x3 Psych: Normal mood and affect G/U: Pure wick Skin: no rashes, warm and dry Lymphatic: no cervical or axillary lymphadenopathy Results & Data Results & Data Vital Signs (Past 12 Hours) Vital Signs Temp Pulse Pulse Resp BP Pulse Ox O2 Del Method 11/25/24 22:58 36.8 C 77 18 118/70 92 Room Air 11/25/24 19:45 36.8 C 71 20 106/69 93 Nasal Cannula 11/25/24 19:24 76 18 91 Nasal Cannula 11/25/24 16:11 36.9 C 74 16 105/66 91 Nasal Cannula 11/25/24 12:58 68 O2 Flow Rate 11/25/24 22:58 11/25/24 19:45 2 11/25/24 19:24 3 11/25/24 16:11 3 11/25/24 12:58 PG Care Time/CCT Total # of Minutes Spent Total Time Spent with Patient: Total time spent is greater than 50% in coordination of care (as documented) at patient's floor/unit and/or counseling patient: Coding Level of Care Code 90158 SUB INP/OBS CARE MIN Diagnoses Pneumonia J18.9 Pleural effusion J90
[2024-11-26 07:27] LABS: Hematocrit (blood only) 35.8 % (37.0-47.0); Hemoglobin 12.3 g/dl (12.0-16.0); Mean Corpuscular Hemoglobin 31.3 pg (25.0-34.0); Mean Corpuscular Volume 91.1 fL (80.0-100.0); Platelet Count 174 K/uL (130-400); RDW Standard Deviation 40.4 fL (36.4-46.3); Red Blood Count 3.93 M/uL (4.20-5.40); White Blood Count 6.60 K/ul (4.8-10.8)
[2024-11-26 07:53] LABS: Anion Gap 5.0 (3-11); Blood Urea Nitrogen 10.0 mg/dl (6-23); Calcium 8.2 mg/dl (8.6-10.3); Carbon Dioxide 34.0 mmol/L (21-32); Chloride 100.0 mmol/L (98-107); Creatinine Clr Calc Pharmacy 52.8 ml/min; Glucose 95.0 mg/dl (70-99(Fasting)); Potassium 3.8 mmol/L (3.5-5.1); Sodium 139.0 mmol/L (136-145)
[2024-11-26 07:59] LABS: ANTI-Xa, UFH(UnfractionatedHep 0.45 IU/ml (0.3-0.7)
--- NOTE | 2024-11-26 09:43 | Cardiology Progress Note ---
Date of Service November 26, 2024 Assessment & Plan (1) Bilateral pulmonary embolism: (2) Pulmonary hypertension: (3) Left leg DVT: (4) Hemoptysis: (5) Multifocal pneumonia: Plan Ms. Sands continues to have high supplemental oxygen needs. She has a repeat echo to assess pulmonary pressures pending. Her blood pressures have been stable. She continues on heparin. She is bringing up some black sputum but no further maykel bleeding. Hemoglobin has been stable. Her troponin peaked at 223 and trended down. She is not having any concerning anginal symptoms. Her bnp is slightly elevated likely due to the pulmonary pressures created by her PE. She appears relatively euvolemic Admission and Anticipated Discharge Date Admission Date: November 19, 2024 Subjective Ms. Sands has no complaints this morning. She is up to a chair. She denies sob or chest pain. SR on the monitor. Her cough has largely resolved but when she clears her throat sometimes she brings up black phlegm. No maykel blood. Review of Systems Review of Systems: All systems reviewed & are unremarkable except as noted in HPI & below Physical Exam Constitutional: WD/WN, vitals as above Respiratory: normal respiratory effort, lungs clear to auscultation Cardiovascular: RRR, no murmur, no edema Skin: no rashes, warm and dry Neurologic: moves all extremities and awake Psychiatric: A+Ox3, euthymic affect Results & Data Vital Signs (Past 12 Hours) Vital Signs Temp Pulse Pulse Resp BP Pulse Ox O2 Del Method 11/26/24 08:00 Nasal Cannula 11/26/24 07:24 81 16 95 Nasal Cannula 11/26/24 07:17 36.7 C 72 16 133/77 96 Nasal Cannula 11/26/24 05:30 73 11/26/24 03:27 36.8 C 67 18 132/75 98 Nasal Cannula 11/26/24 00:24 Nasal Cannula 11/25/24 22:58 36.8 C 77 18 118/70 92 Room Air O2 Flow Rate 11/26/24 08:00 5 11/26/24 07:24 5 11/26/24 07:17 6 11/26/24 05:30 11/26/24 03:27 6 11/26/24 00:24 5 11/25/24 22:58
--- NOTE | 2024-11-26 11:09 | Pulmonology Progress Note ---
Date of Service November 26, 2024 Assessment & Plan (1) Multifocal pneumonia: (2) Bronchiectasis: (3) Acute respiratory failure with hypoxia: (4) Hemoptysis: (5) Pulmonary hypertension: (6) Bilateral pulmonary embolism: Plan Impression: 84-year-old female was transferred from [facility] for hemoptysis. This was resolving but the patient developed a hemodynamically significant PE and has been initiated on heparin. Recommendations: 1. Acute PE with RV strain: Patient has risk factors for deterioration including oxygen requirement, elevated biomarkers, and RV strain noted on echocardiogram. Case was discussed apparently with [facility] for potential catheter directed thrombectomy however they recommended anticoagulation per report. Heparin has been therapeutic would transition to oral anticoagulation at this time. Given the severity of this event and the fact that it is recurrent, would recommend lifelong anticoagulation. Pulmonary hypertension, with follow-up echocardiogram in 3 months to assess PA pressures. 2. Hemoptysis: Likely secondary to bronchiectasis. Could be exacerbated by heparin but seems reasonably well-tolerated currently and risk-benefit would favor continuing anticoagulation. Continue to monitor. 3. Hypoxemia: Multifactorial due to #1 and bronchiectasis. Wean as tolerated with SpO2 goal > 90%. 4. Bronchiectasis: Patient is currently on Perforomist and DuoNebs. Cultures no growth to date. Thank you for allowing us to participate in this patient's care. Please reach out with questions or concerns. I spent more than 36 minutes looking in the chart, images, discussing the plan of care with the patient and family, RN as well as primary team Admission and Anticipated Discharge Date Admission Date: November 19, 2024 Supervising Physician Co-Signing Physician Notes Patient seen and examined. EMR reviewed. Discussed with JAMES and agree with assessment plan as noted. Patient is doing well clinically. No evidence of clinical deterioration. Okay to discontinue heparin drip and transition over to DOAC. Recommend lifelong anticoagulation. Follow-up echocardiogram in 3 months. Wean oxygen as tolerated to defend saturations at or above 90%. Continue to increase activity as tolerated. Pulmonary will sign off at this point in time. Feel free to contact us with questions or concerns Subjective "Feels good to be out of bed." Patient with scant dark bloody phlegm. Patient continues on heparin gtt and is therapeutic. Patient on 6L NC with SpO2 of 95%. Review of Systems 2 Review of Systems: All systems reviewed & are unremarkable except as noted in HPI & below Physical Exam 2 Physical Exam: VITALS: Reviewed. WEIGHT/BMI reviewed. GEN: Healthy appearing, well-developed, NAD. PSYCH: Good Judgment. AOx3. Normal memory, mood, and affect. HEENT -Head: NC/AT; -Eyes: PERRL, EOMI. No discharge or redn ess; -Ears: External ears are normal. -Nose: Normal nares. NECK: Supple, with no masses. CV: RRR, no m/r/g. LUNGS: CTAB, no w/r/c. ABD: N/A : N/A SKIN: Warm, well perfused. No skin rashes or abnormal lesions. MSK: No deformities, Normal gait. EXT: No clubbing, cyanosis, or edema. NEURO: Normal muscle strength and tone. No focal deficits. Results & Data Results & Data Vital Signs (Past 12 Hours) Vital Signs Temp Pulse Pulse Resp BP Pulse Ox O2 Del Method 11/26/24 10:54 69 11/26/24 08:00 Nasal Cannula 11/26/24 07:24 81 16 95 Nasal Cannula 11/26/24 07:17 36.7 C 72 16 133/77 96 Nasal Cannula 11/26/24 05:30 73 11/26/24 03:27 36.8 C 67 18 132/75 98 Nasal Cannula 11/26/24 00:24 Nasal Cannula O2 Flow Rate 11/26/24 10:54 11/26/24 08:00 5 11/26/24 07:24 5 11/26/24 07:17 6 11/26/24 05:30 11/26/24 03:27 6 11/26/24 00:24 5 Laboratory Results 11/26/24 06:39 11/26/24 06:39 Abnormal Lab Results 11/20/24 11/26/24 05:03 06:39 WBC 6.60 RBC 3.93 L Hgb 12.3 Hct 35.8 L MCV 91.1 MCH 31.3 MCHC 34.4 RDW Std Deviation 40.4 RDW Coeff of Ronda 12.1 Plt Count 174 MPV 9.6 Heparin Anti-Xa, Unfract 0.45 Sodium 139 Potassium 3.8 Chloride 100 Carbon Dioxide 34 H Anion Gap 5 BUN 10 Creatinine 0.78 Est Cr Clr Drug Dosing 52.8 eGFR 74.85 BUN/Creatinine Ratio 12.8 Glucose 95 Calcium 8.2 L Mycoplasma pneumon IgM 82 PG Care Time/CCT Total # of Minutes Spent Total Time Spent with Patient: Total time spent is greater than 50% in coordination of care (as documented) at patient's floor/unit and/or counseling patient: Coding Level of Care Code 23718 SUB INP/OBS CARE 2/35MIN Diagnoses Multifocal pneumonia J18.8 Bronchiectasis J47.9 Acute respiratory failure with hypoxia J96.01 Hemoptysis R04.2 Pulmonary hypertension I27.20 Bilateral pulmonary embolism I26.99
[2024-11-26] MEDS ORDERED: Nursing to Pharmacy Communication SCH (16:15)
[2024-11-26] MEDS: APIXABAN 5 MG TABLET PO SCH (21:26)
--- NOTE | 2024-11-26 22:52 | Hospitalist Progress Note ---
Date of Service November 26, 2024 Assessment & Plan (1) Pneumonia: (2) Pleural effusion: Plan 84-year-old female PMHx arthritis, bronchiectasis, osteopenia, pulmonary nodules, and PE not on anticoagulation who presents from [facility] after being admitted earlier in the day for new onset of "coughing up blood." During her hospital course at the outside facility, labs were obtained which revealed a CBC with WBC 4.46, H&H 12.9/37.9, platelets 108; she tested positive for adenovirus at that time. Head CT neck CT without acute findings. Chest CTA did not reveal a PE which did show RLL pneumonia, small right pleural effusion, mediastinal right-sided and hilar adenopathy, and persistent bronchiectasis of the RML. She was started on antibiotics during her hospital course, to include ceftriaxone and azithromycin. She was also provided with DuoNeb. #PNA/Pleural Effusion/? Hemoptysis Presenting with suspected new onset hemoptysis after "few day course" of coughing. 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 H/o PE, not on anticoagulation currently. No SOB at admission. H/o bronchiectasis. Awaiting further outside records. - Labs per outside record - CBC w/ leukopenia (4.46), H/H 12.9/37.9, plt 108 - [employer] per outside record (+) adenovirus - Chest CTA per outside record -- no evidence of PE, RLL pneumonia, small right pleural effusion, mediastinal right hilar adenopathy, bronchiectasis of the RML - O2 prn - no O2 at baseline: has been intermittently on room air for the past 24 hours -appreciate input from pulm will stop percussion vest and flutter valve and incentive spirometry due to hemoptysis completed antibiotics: cef and azithromycin for PNA - DuoNebs prn wheezing - Robitussin prn cough - Pulm consulted - appreciate input + recs Plan was to discharge patient pending placement for rehab when she had a syncopal episode on 11/24 No Chest vest therapy at home for 1 week. Physical therapy is recommending rehab. #Acute pulmonary emboli S/P vasovagal syncope on 11/24 CT scan showed high clot burden bilateral pulnonary emboli with right heart strain. I called [facility] to discuss catheter directed thrombolytic on 11/24 and 11/25 They stated that given her risk and benefit and that her vitals are stable, they recommended to continue anticoagulation. Initally on IV heparin. Trop peaked at over 200, and now downtrending. Will transition to [place] on PM of 11/26 #syncope Vasovagal, initally concnered for superimposed tachybrady syndrome. consulted cardiology #OA- Diclofenac gel prn - continue #Osteopenia- Vitamin D supp - continue #H/o corneal transplant - continue eye drops as prescribed Dispo: Admit, PCU VTE Prophylaxis: [facility] Admission and Anticipated Discharge Date Admission Date: November 19, 2024 Subjective Patient reports breathing much better today. She feels close to her baseline. Physical Exam Physical Exam: Constitutional: No acute distress HEENT: EOMI, PERRLA Respiratory system: improved breath sounds CVS: S1-S2 positive, no murmurs or gallops Abdomen: Soft, nontender, nondistended, positive bowel sounds x4 Extremities: +2 pulses bilaterally radialis/ dorsalis pedis, no cyanosis, no edema Neuro: Awake alert oriented x3 Psych: Normal mood and affect Results & Data Results & Data Vital Signs (Past 12 Hours) Vital Signs Temp Pulse Pulse Resp BP BP Pulse Ox 11/26/24 20:23 74 16 89 L 11/26/24 19:25 37.1 C 75 16 115/71 96 11/26/24 15:38 36.6 C 69 18 112/71 96 11/26/24 14:53 87 L 11/26/24 14:02 68 11/26/24 12:00 36.5 C 68 18 124/81 95 11/26/24 10:54 69 O2 Del Method O2 Flow Rate 11/26/24 20:23 Nasal Cannula 3 11/26/24 19:25 Nasal Cannula 2 11/26/24 15:38 Nasal Cannula 11/26/24 14:53 3 11/26/24 14:02 11/26/24 12:00 Nasal Cannula 6 11/26/24 10:54 PG Care Time/CCT Total # of Minutes Spent Total Time Spent with Patient: Total time spent is greater than 50% in coordination of care (as documented) at patient's floor/unit and/or counseling patient: Coding Level of Care Code 64800 SUB INP/OBS CARE 50MIN Diagnoses Pneumonia J18.9 Pleural effusion J90
[2024-11-27 08:04] LABS: Hematocrit (blood only) 34.6 % (37.0-47.0); Hemoglobin 11.7 g/dl (12.0-16.0); Mean Corpuscular Hemoglobin 30.9 pg (25.0-34.0); Mean Corpuscular Volume 91.3 fL (80.0-100.0); Platelet Count 189 K/uL (130-400); RDW Standard Deviation 40.7 fL (36.4-46.3); Red Blood Count 3.79 M/uL (4.20-5.40); White Blood Count 5.59 K/ul (4.8-10.8)
[2024-11-27 08:26] LABS: Alanine Aminotransferase 23.0 U/L (7-52); Albumin Globulin Ratio 1.0 (0.9-2); Alkaline Phosphatase 56.0 U/L (34-104); Anion Gap 4.0 (3-11); Bilirubin,Total 0.6 mg/dl (0.2-1.0); Blood Urea Nitrogen 9.0 mg/dl (6-23); Calcium 8.3 mg/dl (8.6-10.3); Carbon Dioxide 34.0 mmol/L (21-32); Chloride 101.0 mmol/L (98-107); Creatinine Clr Calc Pharmacy 48.9 ml/min; Globulin 3.2 gm/dl (2.5-4.0); Glucose 98.0 mg/dl (70-99(Fasting)); Potassium 3.9 mmol/L (3.5-5.1); Sodium 139.0 mmol/L (136-145); Total Protein 6.3 gm/dl (6.0-8.3)
[2024-11-27 08:31] LABS: ANTI-Xa, UFH(UnfractionatedHep > 1.50 IU/ml (0.3-0.7)
--- NOTE | 2024-11-27 09:21 | Hospitalist Progress Note ---
Date of Service November 27, 2024 Assessment & Plan (1) Pneumonia: (2) Pleural effusion: Plan 84-year-old female PMHx arthritis, bronchiectasis, osteopenia, pulmonary nodules, and PE not on anticoagulation who presents from [facility] after being admitted earlier in the day for new onset of "coughing up blood." During her hospital course at the outside facility, labs were obtained which revealed a CBC with WBC 4.46, H&H 12.9/37.9, platelets 108; she tested positive for adenovirus at that time. Head CT neck CT without acute findings. Chest CTA did not reveal a PE which did show RLL pneumonia, small right pleural effusion, mediastinal right-sided and hilar adenopathy, and persistent bronchiectasis of the RML. She was started on antibiotics during her hospital course, to include ceftriaxone and azithromycin. She was also provided with DuoNeb. #PNA/Pleural Effusion/ Bronchiectasis/Hemoptysis Presenting with suspected new onset hemoptysis after "few day course" of coughing. Does follow with bridge worker apprentice who encouraged her to utilize p ercussion vest daily, she is compliant. H/o PE, not on anticoagulation currently. No SOB at admission. H/o bronchiectasis. -Outside records indicate adenovirus, did have improvement but prior to DC a cutely decompensated, developed acute large PE #Acute pulmonary emboli S/P vasovagal syncope on 11/24 CT scan showed high clot burden bilateral pulmonary emboli with right heart strain. Tertiary care called and did discuss catheter directed thrombolytic on 11/24 and 11/25 They stated that given her risk and benefit and that her vitals are stable, they recommended to continue anticoagulation. Initally on IV heparin.. some hemoptysis felt secondary to bronchiectasis, pulm med recommends transition to oral anticoagulation Trop peaked at over 200, and now downtrending, from right heart strain from PE this is also to be considered demand ischemia Will transition to Eliquis on PM of 11/26 certainly risk of pulmonary hemorrhage given scant hemoptysis has been present but feel this is more from her chronic issue of bronchiectasis. #syncope Vasovagal, initially concerned for superimposed tachybrady syndrome. consulted cardiology #OA- Diclofenac gel prn - continue #Osteopenia- Vitamin D supp - continue #H/o corneal transplant - continue eye drops as prescribed VTE Prophylaxis: Eliquis Admission and Anticipated Discharge Date Admission Date: November 19, 2024 Subjective Patient feels much better participating with physical therapy open to going to rehab. Still requiring supplemental oxygen. Cough is still present with production of dark and mattering which is likely old blood from bronchiectasis. Physical Exam Physical Exam: movement all lung samayoa nontender no wheezes Cardiac exam is regular extremities with trace edema Results & Data Results & Data Vital Signs (Past 12 Hours) Vital Signs Temp Pulse Pulse Resp BP Pulse Ox O2 Del Method 11/27/24 07:52 97.9 F 66 16 117/72 96 Nasal Cannula 11/27/24 07:22 Nasal Cannula 11/27/24 07:02 69 18 97 Nasal Cannula 11/27/24 03:26 98.1 F 63 16 122/78 99 Nasal Cannula 11/27/24 00:27 61 11/26/24 23:07 98.2 F 62 16 126/83 97 Nasal Cannula O2 Flow Rate 11/27/24 07:52 2 11/27/24 07:22 2 11/27/24 07:02 3 11/27/24 03:26 3 11/27/24 00:27 11/26/24 23:07 3 Laboratory Results Reviewed CBC reviewed chemistry PG Care Time/CCT Total # of Minutes Spent Total Time Spent with Patient: Total time spent is greater than 50% in coordination of care (as documented) at patient's floor/unit and/or counseling patient: Coding Level of Care Code 32216 SUB INP/OBS CARE 2/35MIN Diagnoses Pneumonia J18.9 Pleural effusion J90
--- NOTE | 2024-11-27 10:09 | Cardiology Progress Note ---
Date of Service November 27, 2024 Assessment & Plan (1) Bilateral pulmonary embolism: Plan: with moderately severe TR and pulmonary HTN (2) Pulmonary hypertension: (3) Left leg DVT: (4) Hemoptysis: (5) Multifocal pneumonia: Plan Ms. Sands repeat ECHO shows PA pressures down to 50mmHg. Given this is her 2nd PE in 3 years, question what her baseline PA pressures were before this. Transition over to loading dose Eliquis 10mg bid. Her troponin peaked at 223 and trended down. She is not having any concerning anginal symptoms. Her bnp is slightly elevated likely due to the pulmonary pressures created by her PE. She appears relatively euvolemic. If she is DC to rehab in near future, I'd like to see her in follow up in 2-3 weeks in office. will reassess TR and PA pressures with her appt. Admission and Anticipated Discharge Date Admission Date: November 19, 2024 Subjective Patient reports breathing much better today. She feels close to her baseline. Still on NC O2 will need O2 assessment prior to DC to rehab and then home to see O2 requirements. Review of Systems Review of Systems: All systems reviewed & are unremarkable except as noted in HPI & below Physical Exam Physical Exam: without changes Cardiovascular: Rate/Rhythm: regular rate and regular rhythm Results & Data Vital Signs (Past 12 Hours) Vital Signs Temp Pulse Pulse Resp BP Pulse Ox O2 Del Method 11/27/24 07:52 36.6 C 66 16 117/72 96 Nasal Cannula 11/27/24 07:22 Nasal Cannula 11/27/24 07:02 69 18 97 Nasal Cannula 11/27/24 03:26 36.7 C 63 16 122/78 99 Nasal Cannula 11/27/24 00:27 61 11/26/24 23:07 36.8 C 62 16 126/83 97 Nasal Cannula O2 Flow Rate 11/27/24 07:52 2 11/27/24 07:22 2 11/27/24 07:02 3 11/27/24 03:26 3 11/27/24 00:27 11/26/24 23:07 3 Laboratory Results Abnormal lab results 11/27/24 Range/Units 07:05 RBC 3.79 L (4.20-5.40) M/uL Hgb 11.7 L (12.0-16.0) g/dl Hct 34.6 L (37.0-47.0) % Heparin Anti-Xa, Unfract > 1.50 H* (0.3-0.7) IU/ml Carbon Dioxide 34 H (21-32) mmol/L Calcium 8.3 L (8.6-10.3) mg/dl Albumin 3.1 L (3.4-5.0) gm/dl Diagnostic Findings ECHO still with +3 TR PA pressures about 50mmHg Medications Administered Current Inpatient Medications Acetaminophen (Acetaminophen 500 Mg Tab) 1,000 mg PO Q8H PRN PRN Reason: Pain/fever Stop: 12/19/24 23:06 Last Admin: 11/27/24 06:00 Dose: 1,000 mg Albuterol (Albut/Ipratrop 3mg/0.5mg Neb 3 Ml Vial) 3 ml NEB Q6R PRN; Protocol PRN Reason: Wheezing Stop: 12/19/24 23:31 Apixaban (Apixaban 5 Mg Tablet) 10 mg PO BID JUANITO Stop: 12/03/24 09:01 Last Admin: 11/27/24 08:11 Dose: 10 mg Calcium/Vitamin D (Calcium 600mg + Vit D 400 Iu Tab) 1 tab PO QAM JUANITO Stop: 12/20/24 08:59 Last Admin: 11/27/24 08:12 Dose: 1 tab Diclofenac Sodium (Diclofenac Sod 1% Gel 100 Gm Tube) 2 gm EXT QID PRN; Protocol PRN Reason: Pain Stop: 12/19/24 23:36 Formoterol Fumarate (Formoterol 20 Mcg/2 Ml Vial) 20 mcg NEB BIDR JUANITO Stop: 12/20/24 18:59 Last Admin: 11/27/24 07:02 Dose: 20 mcg Guaifenesin/Codeine Phosphate (Guaifenesin/Codeine 100mg/10mg 5ml Udc) 10 ml PO Q8 JUANITO Stop: 12/20/24 13:59 Last Admin: 11/27/24 06:00 Dose: 10 ml Ondansetron HCl (Ondansetron Inj 2 Mg/Ml 2 Ml Vial) 4 mg IV Q6H PRN PRN Reason: Nausea And Vomiting Stop: 12/24/24 10:54 Last Admin: 11/25/24 11:08 Dose: 4 mg Prednisolone Acetate (Prednisolone Acetate 1% Op Susp 5 Ml Btl) 1 drops OP Q12 JUANITO Stop: 12/20/24 08:59 Last Admin: 11/27/24 08:12 Dose: 1 drops
[2024-11-28 07:26] VITALS: RESP 19; O2SAT 92
[2024-11-28 11:01] VITALS: BP 117/68; PULSE 72; TEMP 98.1
--- NOTE | 2024-11-28 11:11 | Cardiology Progress Note ---
Date of Service November 28, 2024 Assessment & Plan (1) Bilateral pulmonary embolism: Plan: with moderately severe TR and pulmonary HTN (2) Pulmonary hypertension: (3) Left leg DVT: (4) Hemoptysis: (5) Multifocal pneumonia: Plan Ms. Sands repeat ECHO shows PA pressures down to 50mmHg. Given this is her 2nd PE in 3 years, question what her baseline PA pressures were before this. Transition over to loading dose Eliquis 10mg bid. Her troponin peaked at 223 and trended down. She is not having any concerning anginal symptoms. Her bnp is slightly elevated likely due to the pulmonary pressures created by her PE. She appears relatively euvolemic. If she is DC to rehab in near future, I'd like to see her in follow up in 2-3 weeks in office. will reassess TR and PA pressures with her appt. Admission and Anticipated Discharge Date Admission Date: November 19, 2024 Subjective Patient reports breathing much better today. She feels close to her baseline. Still on NC O2 will need O2 assessment prior to DC to rehab and then home to see O2 requirements. Results & Data Vital Signs (Past 12 Hours) Vital Signs Temp Pulse Pulse Resp BP BP Pulse Ox 11/28/24 11:00 36.7 C 72 19 117/68 92 11/28/24 10:33 36.6 C 66 76 19 117/76 92 11/28/24 09:54 11/28/24 07:25 36.6 C 76 19 127/81 92 11/28/24 07:15 66 20 95 11/28/24 02:59 36.6 C 70 18 117/76 94 O2 Del Method O2 Flow Rate 11/28/24 11:00 Room Air 11/28/24 10:33 11/28/24 09:54 Room Air 11/28/24 07:25 Nasal Cannula 2 11/28/24 07:15 Nasal Cannula 1 11/28/24 02:59 Nasal Cannula 1
--- NOTE | 2024-11-28 19:55 | Discharge Summary ---
Discharge Summary Date of Service November 28, 2024 Principal Dx & Hospital Course #1 = Principal Diagnosis (1) Pneumonia: (2) Pleural effusion: Plan 84-year-old female PMHx arthritis, bronchiectasis, osteopenia, pulmonary nodules, and PE not on anticoagulation who presents from [facility] after being admitted earlier in the day for new onset of "coughing up blood." During her hospital course at the outside facility, labs were obtained which revealed a CBC with WBC 4.46, H&H 12.9/37.9, platelets 108; she tested positive for adenovirus at that time. Head CT neck CT without acute findings. Chest CTA did not reveal a PE which did show RLL pneumonia, small right pleural effusion, mediastinal right-sided and hilar adenopathy, and persistent bronchiectasis of the RML. She was completed antibiotics during her hospital course, to include ceftriaxone and azithromycin. She was also provided with DuoNeb. #PNA/Pleural Effusion/ Bronchiectasis/Hemoptysis Presenting with suspected new onset hemoptysis after "few day course" of coughing. Does follow with manager generation who encouraged her to utilize percussion vest daily, she is compliant. H/o bronchiectasis. At the be responsible for much of her coughing and pulmonary symptoms -Outside records indicate adenovirus, did have improvement but prior to DC acutely decompensated, developed acute large PE #Acute pulmonary emboli S/P vasovagal syncope on 11/24 CT scan showed high clot burden bilateral pulmonary emboli with right heart strain. Tertiary care called and did discuss catheter directed thrombolytic on 11/24 and 11/25 They stated that given her risk and benefit and that her vitals are stable, they recommended to continue anticoagulation. Initally on IV heparin.. some hemoptysis felt secondary to bronchiectasis, tolerated transition to oral anticoagulation Trop peaked at over 200, and now downtrending, from right heart strain from PE this is also to be considered demand ischemia Did transition to Eliquis on PM of 11/26 certainly risk of pulmonary hemorrhage given scant hemoptysis has been present but feel this is more from her chronic issue of bronchiectasis. #syncope Vasovagal, initially concerned for superimposed tachybrady syndrome. consulted cardiology additional recommendations #OA- Diclofenac gel prn - continue #Osteopenia- Vitamin D supp - continue #H/o corneal transplant - continue eye drops as prescribed Notes For Next Care Provider Patient in the initial phase of her apixaban therapy will need to be down shifted to 5 twice daily once completing her 7-day start this should be on around 12/03/2024 Admission HPI Per Admitting Provider 84-year-old female PMHx arthritis, bronchiectasis, osteopenia, pulmonary nodules, and PE not on anticoagulation who presents from [facility] after being admitted earlier in the day for new onset of "coughing up blood". Patient was accepted for transfer to [facility] for the new onset hemoptysis given limited resources at outside hospital. Patient states that she has been coughing for "weeks". She does follow with a manager generation, who was encouraged her to use her percussion jacket daily. She states that she normally will have some phlegm production that is clear in nature, but over the past few days she has had a worsening cough. On the day of arrival she states that she had coughed up "cups of blood; it was like water." She admits that she has never had this happen before. This gave her choking sensation at the time that it happened. Per hospitalist at outside facility, around 1630 the day of arrival the patient had a coughing episode but did not become hypoxic at any point. She was given a DuoNeb at that time and diagnosed with pneumonia. The patient states again that she has never had this happen before. She is not feeling shortness of breath, no chest pain, no palpitations, no nausea or vomiting. She does not feel weak, lightheaded, dizzy, and has not had any episode of syncope. She does not wear oxygen at baseline. 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 She does have some pulmonary conditions but is not aware of what they are. She denies URI symptoms, fever/chills, night sweats, LUTS, abdominal pain, diarrhea/constipation, or additional concerns. Again, she has never had this happen before. During her hospital course at the outside facility, labs were obtained which revealed a CBC with WBC 4.46, H&H 12.9/37.9, platelets 108; she tested positive for adenovirus at that time. Head CT neck CT without acute findings. Chest CTA did not reveal a PE which did show RLL pneumonia, small right pleural effusion, mediastinal right-sided and hilar adenopathy, and persistent bronchiectasis of t he RML. She was started on antibiotics during her hospital course, to include ceftriaxone and azithromycin. She was also provided with DuoNeb. Please see Dr. David's attestation for adjustments/additions to treatment plan. Discharge Exam Patient awake alert appropriate lungs are actually fairly clear on day of d ischarge Discharge Plan Discharge Items Patient Disposition: Transfer Inpatient Rehab Fac Reason For Visit: HEMOPTYSIS Discharge Diagnosis: Bronchiectasis with flare from adenovirus Pulmonary embolism with right heart strain Activity: Per Instructions section Activity Comment: Per PT OT instruction Non-emergency contact: Primary Care Provider Call non-emergency contact if: your symptoms worsen Follow-up/Referrals: Rafaela Green PA-C [Primary Care Provider] - Diet: Regular Addtl Attending Provider Instructions: Patient is still in the loading phase for her Eliquis therapy likely will need 6 months of therapy. Therapy initiated on 11/26/2024 Still with scant hemoptysis which pulmonary medicine feels this from her bronchiectasis and not from treatment of her acute pulmonary embolism Elevation of troponin felt to be from demand ischemia from right heart strain Final titration of oxygen is yet to be seen Pending Studies at Discharge: No Stand-Alone Forms: My [facility] Skilled Items Patient informed of condition?: Yes DNR: No Discharge Level of Care: Acute rehab Communicable Disease: No Discharge Prognosis: Stable Lines: None Urinary Catheter: No Medications and DC Order Prescriptions: New Eliquis 5 mg Tablet 10 mg PO BID Qty: 32 0RF ipratropium-albuterol 0.5 mg-3 mg(2.5 mg base)/3 mL Solution For Nebulization 3 ml NEB Q6R PRN (Reason: sob) Qty: 90 0RF Continued diclofenac sodium [Arthritis Pain (diclofenac)] 1 % Gel 2 g TOPICAL QID PRN (Reason: Pain) calcium carb, citrate-vit D3 [Citracal-D3 Slow Release] 600 mg calcium- 500 unit Tablet Extended Release 1 tab PO QAM prednisolone acetate [Pred Forte] 1 % Drops,Suspension 1 drp ophthalmic (eye) Q12 Discontinued ibuprofen 200 mg Capsule 600 mg PO QID PRN (Reason: Pain) Discharge Orders: Discharge Order (Routine); Ordered 11/28/24 Ordered By: Jeremie Cordero Admission Data Admit Date/Time: 11/19/24 22:15 Attending Provider: Jeremie Cordero Admit Provider: Josey David Primary Care Provider: Rafaela Green Other Providers: Darlene Pool; [facility]; [facility]; Kathe Brand Other Interventions: Discharge Summary Assessment (RN) Last Done: 11/28/24 10:33 Hospital Stay Data Consultations 11/19/24 23:07 Consult Pulmonology Routine 11/24/24 10:35 Consult Cardiology Routine Diagnostic Imagining Performed 11/24/24 10:01 CT angio chest PE protocol Stat 11/24/24 10:04 US venous doppler LE BI Urgent 11/24/24 11:09 US venous doppler UE BI Routine Pending Results Patient Have Any Pending Studies at Discharge: No Discharge Instructions Given to Patient (Per Discharging Provider) Patient is still in the loading phase for her Eliquis therapy likely will need 6 months of therapy. Therapy initiated on 11/26/2024 Still with scant hemoptysis which pulmonary medicine feels this from her b ronchiectasis and not from treatment of her acute pulmonary embolism Elevation of troponin felt to be from demand ischemia from right heart strain Final titration of oxygen is yet to be seen Total Time Total Time Spent Total Time Spent (In Minutes): It required greater than 30 minutes to prepare this patient for discharge. Coding Level of Care Code 67509 INP/OBS DISCH >30 MIN Diagnoses Pneumonia J18.9 Pleural effusion J90
== END 2024-11-28 13:47 | DRG 175 ==
LOC: 2S 22:15 → SUATTDRO 22:15

== ENCOUNTER 2024-12-05 16:41 | Observation (INO) ==
[2024-12-05 17:51] LABS: Hematocrit (blood only) 42.1 % (37.0-47.0); Hemoglobin 14.0 g/dl (12.0-16.0); Immature Granulocytes # (auto) 0.03 K/uL (0.01-0.20); Immature Granulocytes % (auto) 0.5 %; Mean Corpuscular Hemoglobin 30.4 pg (25.0-34.0); Mean Corpuscular Volume 91.3 fL (80.0-100.0); Platelet Count 271 K/uL (130-400); RDW Standard Deviation 43.5 fL (36.4-46.3); Red Blood Count 4.61 M/uL (4.20-5.40); White Blood Count 6.25 K/ul (4.8-10.8)
[2024-12-05 18:08] LABS: Alanine Aminotransferase 18 U/L (7-52); Albumin Globulin Ratio 1.0 (0.9-2); Alkaline Phosphatase 69 U/L (34-104); Anion Gap 7 (3-11); Bilirubin,Total 0.5 mg/dl (0.2-1.0); Blood Urea Nitrogen 11 mg/dl (6-23); Calcium 8.9 mg/dl (8.6-10.3); Carbon Dioxide 27 mmol/L (21-32); Chloride 103 mmol/L (98-107); Globulin 3.8 gm/dl (2.5-4.0); Glucose 98 mg/dl (70-99(Fasting)); Magnesium 2.1 mg/dl (1.7-2.4); Potassium 4.1 mmol/L (3.5-5.1); Sodium 137 mmol/L (136-145); Total Protein 7.7 gm/dl (6.0-8.3)
[2024-12-05 18:24] LABS: Thyroid Stimulating Hormone 3.229 uIu/ml (0.300-4.500)
--- NOTE | 2024-12-05 18:49 | XRay Report ---
Chest radiograph, one view History: Chest pain Comparison: 11/24/2024 Findings: Single AP view of the chest performed. Mild patchy opacity about the region of the lingula. Some subtle patchy opacity in the right mid/lower lung also again seen likely related to known chronic atelectasis and bronchiectasis. No pneumothorax. Biapical pleural-parenchymal thickening and scarring again seen. The cardiomediastinal silhouette is within normal limits. Normal pulmonary vascularity. No evidence for lymphadenopathy. No visualized bony or soft tissue abnormality. Impression: Continued atelectasis or consolidation in the lingual. Electronically signed by Roney Pederson 12-05-2024 6:45 PM
--- NOTE | 2024-12-05 19:26 | Emergency Department Note ---
Impression & Plan Musculoskeletal strain, JENNIFER (acute kidney injury), Muscle spasm, Physical deconditioning, Neck and shoulder pain, Atelectasis ED Provider Note NAME: BEKAH MIJARES AGE: 84 SEX: F : 1940 ARRIVES VIA: Walk-In INFORMANT: Patient, daughters ED PROVIDER(S): Jeff Reece DO CHIEF COMPLAINT: neck pain HPI: This is a 84-year-old female with the PMHx of PE on anticoagulation and recent admissions currently being treated for UTI presenting to [facility] for further evaluation of neck pain and weakness. Patient is accompanied by her daughters who provide additional history. Daughters provide most of the history. They report approximately 2 weeks ago she was in the [facility] for dehydration. Patient was ultimately discharged home after IV fluid resuscitation. She re-presented to the hospital. Patient was then admitted for a course of a week. Patient then transferred down here for further evaluation at [facility] for pulmonary embolism as she developed significant hemoptysis. Patient was then discharged for a week long rehabilitation stay at [facility]. Patient has been deconditioned since and struggling. Patient was previously healthy before all of these events. Patient reports that she goes dancing 3-4 nights weekly. She is able to walk a few miles a day. Patient can no longer perform ADLs or these activities given her severe neck pain as well as deconditioning. Family is very concerned about her neck. They are unsure what happened. No overuse injury or trauma They deny fever or chills. No cough or congestion. Denies chest pain or palpitations. No shortness of breath. They deny abdominal pain, nausea and vomiting. No urinary complaints. No recent changes in bowel movements. Patient denies recent changes in medications or OTC supplements. Patient offers no other complaints, today. ADDITIONAL HISTORY OBTAINED: Per HPI Chronic Medical/Social Conditions Affecting Care: Per HPI PAST MEDICAL HISTORY: See Below PAST SURGICAL HISTORY: See Below FAMILY HISTORY: See Below SOCIAL HISTORY: See Below HOME MEDICATIONS: See Below ALLERGIES: See Below VITALS: See Below PHYSICAL EXAMINATION: GENERAL: Sitting up in bed, alert, well appearing, well nourished, no distress, non-toxic EYE EXAM: normal conjunctiva. PERRL and EOM's grossly intact. OROPHARYNX: no exudate, no erythema, lips, buccal mucosa, and tongue normal and mucous membranes are moist NECK: supple, no nuchal rigidity, no adenopathy, significant TTP over the L paraspinal tissues that travels to the posterior shoulder, soft tissue are tense LUNGS: Clear to auscultation. Normal chest wall mechanics HEART: no murmurs, regular rate, regular rhythm ABDOMEN: abdomen soft, non-tender, no masses, no rebound or guarding. BACK: Back is symmetrical on inspection and there is no deformity, no midline tenderness, no CVA tenderness. SKIN: no rashes and no bruising UPPER EXTREMITIES: upper extremities are grossly normal. UE are neurovascularly intact. LOWER EXTREMITIES: No pitting edema. NEURO EXAM: Normal sensorium, GCS 15, normal speech, no gross weakness of arms, no gross weakness of legs. MEDICAL DECISION MAKING: Differential diagnoses includes but not limited to musculoskeletal strain, muscle spasm, cervical radiculopathy, peripheral neuropathy, neuropathic pain, degenerative disc disease of the cervical spine, deconditioning, ambulatory dysfunction, electrolyte derangements, kidney dysfunction, dehydration In summary, this is a 84 year old female who presented with neck pain. Differential as above. Nursing notes and pertinent past medical records reviewed. Vital signs reviewed and the patient is afebrile and HDS. History and presentation revealed significant recent past medical history. I reviewed patient's documentation from prior hospitalizations. Diagnosed with pulmonary emboli as well as pneumonia. She was also treated for UTI. Patient currently on Bactrim for UTI as an outpatient. Patient was discharged to a rehab facility but continues to worsen. Patient is not at her baseline. She is unable perform ADLs or ambulate significantly. Patient's head is constantly head held in flexion and family is worried about her falling. Physical examination revealed as above. As a result of my initial evaluation, patient's physical examination seems to be more consistent with musculoskeletal strain or muscle spasm. Doubt this is acute cervical radiculopathy or spinal cord compression. She is neurovascularly intact and there is no evidence of this. Will obtain a CT C- spine for reassurance given the family's concerns. Plan to repeat lab work today. Do feel a lot of her symptoms are related to deconditioning during significant hospital and rehabilitation stay. Patient is struggling with pain control given recent anticoagulation and no longer able to use NSAIDs. Diagnostics interpreted by me include EKG and cardiac monitoring as listed below: -Cardiac Monitoring: An order was placed for continuous cardiac monitoring. The monitor shows a rate of 60-80s with regular rhythm. -ECG: EKG independently interpreted by me reveals normal sinus rhythm at [address] segment changes to suggest STEMI. Intervals are within normal limits. Patient completed laboratory studies and imaging. CXR independently interpreted by me reveals no evidence of focal consolidation to suggest pna. No large pneumothorax or pleural effusion. There are changes consistent with atelectasis. I do not think she has clinical evidence of pneumonia at this time. Will defer treatment. Results independently interpreted by me are no significant anemia or leukocytosis. Electrolytes are normal. LFTs are normal. Does have an JENNIFER. The patient was managed with IVFR for JENNIFER. Initially, she was given valium and lidocaine patch without improvement. She was then given a dose IVP Fentanyl. CT C-spine independently interpreted by me is negative for any acute pathology. Patient recently admitted for pulmonary embolism as well as rehabilitation services. Do patient think the patient's physical examination presentation today are likely related to musculoskeletal strain and muscle spasm. Do feel that she is likely deconditioned. Patient is failing to thrive at home. She is having trouble performing her ADLs. I do not think that further workup is necessary regarding her neck pain. I do believe that she would benefit from inpatient rehabilitation services. She also has an JENNIFER will need to continue IV fluid resuscitation and hopeful for renal recovery. Patient will benefit from inpatient rehabilitation stay. This was discussed essentially with the patient as well as her daughters. They are agreeable to this. They would be interested in further rehabilitation services. Ultimately, the decision was made to admit the patient for significant difficulty with ADLs and ambulatory status in the setting of acute neck pain and JENNIFER. I discussed the case with the hospitalist service via telephone/Tiger[employer] and they are agreeable to admit the patient to their services. Based on the above, including the patient's age, coexisting illnesses, labs, imaging, and exam findings the decision to treat as an inpatient. I discussed the patient with the hospitalist team who recommended admission to their services. They received the medications, treatments, interventions indicated above and their condition remained stable. I discussed my findings with the patient and their family and they understand and agree with the treatment plan. All patient / family questions were answered to their satisfaction. Consults/Care Managements Discussions: Per MDM ER treatment provided: See above Procedures:none Critical Care: None The chart was completed utilizing [employer] voice recognition software. Grammatical errors, random word insertions, pronoun errors, and incomplete sentences are an occasional consequence of this system due to software limitations, ambient noise, and hardware issues. Any formal questions or concerns about the content, text, or information contained within the body of this dictation should be directly addressed to the physician for clarification. Past Med/Surg History Problem List (Updated 12/06/24 @ 21:34 by Jeff Reece DO) Atelectasis (Acute) Neck and shoulder pain (Acute) Physical deconditioning (Acute) Muscle spasm (Acute) JENNIFER (acute kidney injury) (Acute) Musculoskeletal strain (Acute) UTI (urinary tract infection) JENNIFER (acute kidney injury) Cervical strain Left leg DVT Pulmonary hypertension Bilateral pulmonary embolism Hemoptysis Acute respiratory failure with hypoxia Bronchiectasis Multifocal pneumonia Pleural effusion Pneumonia History of corneal transplant (Acute) Eye pain (Acute) Corneal ulcer (Acute) Medical History Hx of cataract both eyes Hx of staphylococcal infection right eye Hyperlipidemia states no longer takes meds d/t muscle aching Surgical History Hx of colonoscopy Hx of tonsillectomy Hx of appendectomy Hx of cornea transplant x2 right eye Social History Smoking Status: Never smoker Hx Alcohol Use: No Hx Substance Use: No Preferred Language: Mohawk Communication Ability: Effective Senior Software Qa Analyst Required: No Beliefs That Will Affect Care: None Current Living Situation: Family Feels Safe at Home: Yes Assistive Devices: Other Allergies Allergies Allergy/AdvReac Type Severity Reaction Status Date / Time baclofen AdvReac Intermediate Shakiness Verified 12/06/24 09:07 gabapentin AdvReac Intermediate Shakiness Verified 12/06/24 09:07 Home Meds Home Medications Medication Instructions Recorded Confirmed calcium ER 600 mg (as carb,cit)-D3 1 tab PO QAM 01/12/18 12/05/24 12.5 mcg (500 unit) tablet, ext.rel (Citracal-D3 Slow Release) diclofenac sodium 1 % topical gel 2 g topical QID PRN Pain 01/12/18 12/05/24 (Arthritis Pain (diclofenac)) prednisolone acetate 1 % eye 1 drp ophthalmic (eye) Q12 01/15/18 12/05/24 drops,suspension (Pred Forte) sulfamethoxazole 800 1 tab PO BID 12/05/24 mg-trimethoprim 160 mg tablet Previous Rx's Medication Instructions Recorded apixaban 5 mg tablet (Eliquis) 10 mg (2 x 5 mg) PO BID #32 tabs 11/27/24 Results & Data (ED) Vital Signs Vital Signs - 24 hr 12/05/24 21:58 12/05/24 21:58 12/05/24 22:11 Pulse Rate [Apical] 82 Respiratory Rate 18 Blood Pressure [Right Arm] 162/93 H Blood Pressure Mean [Right Arm] 116 Pulse Oximetry 93 Oxygen Delivery Method Room Air Room Air Room Air Laboratory Data 12/06/24 06:04 12/06/24 06:04 Lab Results 12/05/24 12/05/24 Range/Units 19:31 Unknown WBC 6.25 (4.8-10.8) K/ul RBC 4.61 (4.20-5.40) M/uL Hgb 14.0 (12.0-16.0) g/dl Hct 42.1 (37.0-47.0) % MCV 91.3 (80.0-100.0) fL MCH 30.4 (25.0-34.0) pg MCHC 33.3 (32.0-36.0) g/dL RDW Std Deviation 43.5 (36.4-46.3) fL RDW Coeff of Ronda 13.2 (11.5-14.5) % Plt Count 271 (130-400) K/uL MPV 9.5 (9.4-12.4) fL Immature Gran % (Auto) 0.5 % Neut % (Auto) 54.1 % Lymph % (Auto) 33.1 % Calhoun % (Auto) 8.5 % Eos % (Auto) 2.7 % Baso % (Auto) 1.1 % Neut # (Auto) 3.38 (1.40-6.50) K/uL Lymph # (Auto) 2.07 (1.20-3.40) K/uL Calhoun # (Auto) 0.53 (0.11-0.59) K/uL Eos # (Auto) 0.17 (0.00-0.50) K/uL Baso # (Auto) 0.07 (0.00-0.20) K/uL Immature Gran # (Auto) 0.03 (0.01-0.20) K/uL PT 12.1 H Cancelled (9.0-12.0) Seconds INR 1.1 Cancelled (0.9-1.1) APTT 41 H Cancelled (21-31) Seconds PTT Ratio 1.5 Cancelled Sodium 137 (136-145) mmol/L Potassium 4.1 (3.5-5.1) mmol/L Chloride 103 (98-107) mmol/L Carbon Dioxide 27 (21-32) mmol/L Anion Gap 7 (3-11) BUN 11 (6-23) mg/dl Creatinine 1.23 H (0.6-1.2) mg/dl Est Cr Clr Drug Dosing Not Reportable eGFR 43.33 BUN/Creatinine Ratio 8.9 L (10-20) Glucose 98 (70-99(Fasting)) mg/dl Calcium 8.9 (8.6-10.3) mg/dl Magnesium 2.1 (1.7-2.4) mg/dl Total Bilirubin 0.5 (0.2-1.0) mg/dl AST 23 (13-39) U/L ALT 18 (7-52) U/L Alkaline Phosphatase 69 (34-104) U/L Troponin I High Sens 3.6 (0-14) pg/ml Total Protein 7.7 (6.0-8.3) gm/dl Albumin 3.9 (3.4-5.0) gm/dl Globulin 3.8 (2.5-4.0) gm/dl Albumin/Globulin Ratio 1.0 (0.9-2) TSH 3.229 (0.300-4.500) uIu/ml Administered Medications Acetaminophen (Acetaminophen 500 Mg Tab) 1,000 mg PO TID JUANITO Stop: 01/05/25 08:59 Last Admin: 12/06/24 20:01 Dose: 1,000 mg Documented By: Admin: 12/06/24 14:00 Dose: 1,000 mg Documented By: Admin: 12/06/24 08:47 Dose: 1,000 mg Documented By: PME Apixaban (Apixaban 5 Mg Tablet) 10 mg PO BID [facility] Stop: 12/12/24 21:01 Last Admin: 12/06/24 20:02 Dose: 10 mg Documented By: Admin: 12/06/24 09:24 Dose: 10 mg Documented By: PME Cyclobenzaprine HCl (Cyclobenzaprine Hcl 5 Mg Tab) 5 mg PO TID PRN PRN Reason: muscle pain Stop: 01/05/25 13:59 Last Admin: 12/06/24 15:28 Dose: 5 mg Documented By: PME Methylprednisolone 40 mg/ (Syringe) 0.64 mls @ 1.5 mls/min IV BID JUANITO Stop: 01/05/25 20:59 Last Admin: 12/06/24 19:58 Dose: 1.5 mls/min Documented By: LEDY Lidocaine (Lidocaine 5% 1 Patch) 1 patch TD HS JUANITO Stop: 01/05/25 20:59 Last Admin: 12/06/24 19:58 Dose: Not Given Documented By: LEDY Melatonin (Melatonin 3 Mg Tab) 3 mg PO HS PRN PRN Reason: Insomnia Stop: 01/05/25 03:09 Last Admin: 12/06/24 20:02 Dose: 3 mg Documented By: LEDY Miscellaneous (Remove Lidoderm Patch) 1 each N/A QAM [facility] Stop: 01/05/25 07:59 Last Admin: 12/06/24 09:26 Dose: 1 each Documented By: ALLYN Prednisolone Acetate (Prednisolone Acetate 1% Op Susp 5 Ml Btl) 1 drops OP Q12 JUANITO Stop: 01/05/25 08:59 Last Admin: 12/06/24 20:01 Dose: Not Given Documented By: Admin: 12/06/24 07:33 Dose: 1 drops Documented By: DOMINIQUE Discontinued Medications Acetaminophen (Acetaminophen 500 Mg Tab) 1,000 mg PO NOW STA Stop: 12/06/24 04:05 Last Admin: 12/06/24 04:13 Dose: 1,000 mg Documented By: ADEOLA Diazepam (Diazepam Inj 5 Mg/Ml 2 Ml Carp) 2.5 mg IV NOW STA Stop: 12/05/24 19:27 Last Admin: 12/05/24 19:49 Dose: 2.5 mg Documented By: NRB Fentanyl Citrate (Fentanyl Citrate Pf 100 Mcg/2 Ml Vial) 50 mcg IV NOW ONE Stop: 12/05/24 21:52 Last Admin: 12/05/24 22:07 Dose: 50 mcg Documented By: LCD Parenteral Electrolytes (Plasma-Lyte A Ph 7.4) 1,000 mls @ 999 mls/hr IV .[id number] ONE Stop: 12/05/24 20:26 Last Infusion: 12/05/24 21:39 Dose: Infused Documented By: Admin: 12/05/24 19:49 Dose: 999 mls/hr Documented By: NRCrsito Lactated Ringer's (Lr) 1,000 mls @ 80 mls/hr IV .[id number] JUANITO Stop: 12/06/24 15:39 Last Infusion: 12/06/24 14:40 Dose: Infused Documented By: Admin: 12/06/24 03:36 Dose: 80 mls/hr Documented By: ADEOLA Methylprednisolone 40 mg/ (Syringe) 0.64 mls @ 1.5 mls/min IV NOW STA Stop: 12/06/24 10:08 Last Admin: 12/06/24 11:13 Dose: 1.5 mls/min Documented By: ALLYN Lidocaine (Lidocaine 5% 1 Patch) 1 patch TD NOW STA Stop: 12/05/24 19:27 Last Admin: 12/05/24 19:49 Dose: 1 patch Documented By: NRCristo Miscellaneous (Remove Lidoderm Patch) 1 each N/A DAILY@2100 [facility] Stop: 01/04/25 20:59 Last Admin: 12/05/24 23:07 Dose: Not Given Documented By: NAW Imaging Data Radiologist's Impression: Chest X-Ray 12/05/24 17:10 Chest radiograph, one view History: Chest pain Comparison: 11/24/2024 Findings: Single AP view of the chest performed. Mild patchy opacity about the region of the lingula. Some subtle patchy opacity in the right mid/lower lung also again seen likely related to known chronic atelectasis and bronchiectasis. No pneumothorax. Biapical pleural-parenchymal thickening and scarring again seen. The cardiomediastinal silhouette is within normal limits. Normal pulmonary vascularity. No evidence for lymphadenopathy. No visualized bony or soft tissue abnormality. Impression: Continued atelectasis or consolidation in the lingual. Electronically signed by Roney Pederson 12-05-2024 6:[address] 12/05/24 19:26 CT of cervical spine without contrast Technique: Noncontrast axial in the cervical spine. Coronal and sagittal reformatted images made available for review No comparison Findings: Vertebral heights are normal in height and aligned without fracture or dislocation. Multilevel cervical spondylopathy resulting in varying degrees of canal foraminal stenosis. Impression: No acute osseous pathology. Electronically signed by Keith Sanon 12-05-2024 9:31 PM Discharge Plan Visit Data Chief Complaint: Weakness Stated Complaint: NECK, CAN'T WALK NEAR SYNCOPE, WEAKNESS ED Provider: Jeff Reece Discharge Problem: Musculoskeletal strain, JENNIFER (acute kidney injury), Muscle spasm, Physical deconditioning, Neck and shoulder pain, Atelectasis Patient Disposition: Admitted As Inpatient Condition: Fair Discharge Instructions Interventions: ED Discharge Assessment Last Done: 12/06/24 02:38
[2024-12-05] MEDS: LIDOCAINE 5% 1 PATCH TD STA (19:49)
[2024-12-05] MEDS: PLASMA-LYTE A 1,000 ML IV ONE (19:49)
[2024-12-05 20:19] LABS: INR 1.1 (0.9-1.1); Partial Thromboplastin Time 41 Seconds (21-31); Prothrombin Time 12.1 Seconds (9.0-12.0)
--- NOTE | 2024-12-05 21:31 | CT Scan Report ---
CT of cervical spine without contrast Technique: Noncontrast axial in the cervical spine. Coronal and sagittal reformatted images made available for review No comparison Findings: Vertebral heights are normal in height and aligned without fracture or dislocation. Multilevel cervical spondylopathy resulting in varying degrees of canal foraminal stenosis. Impression: No acute osseous pathology. Electronically signed by Keith Sanon 12-05-2024 9:31 PM
[2024-12-05] MEDS: REMOVE LIDODERM PATCH SCH (23:07)
[2024-12-06] MEDS ORDERED: DICLOFENAC SOD 1% GEL 100 GM TUBE EXT PRN (00:44)
--- NOTE | 2024-12-06 01:42 | History & Physical Report ---
Date of Service December 06, 2024 Assessment & Plan (1) Cervical strain: (2) JENNIFER (acute kidney injury): (3) Bilateral pulmonary embolism: (4) UTI (urinary tract infection): Plan Pt is an 84 year old female that arrives to ED with left should/neck pain. PMHx includes arthritis, bronchiectasis, osteopenia, pulmonary nodules, and PE. We admitted pt for cervical strain. # Cervical Strain / Neck Pain - Neck Pain does not radiate, pain left shoulder blade area, by the posterior side of her neck in the trapezius muscle region. Described as tense. - CT Cervical Spine -- No acute osseus pathology. Multilevel cervical spon dylopathy resulting in varying degrees of canal foraminal stenosis. - Xray-Chest -- unremarkable as to neck strain -- findings however from prior pneumonia in the right lung - subtle opacities due to atelectasis and bronchiectasis - CBC, BMP Ordered Monitor AM labs - Acetaminophen 1000 mg ordered - Diclofenac topical 2gm ordered - Lidocaine patch 5% ordered # JENNIFER - Cr. 1.77 (11/27) --> Cr. 1.23 (today) -Lactated Ringer 80 mls/hr -BMP ordered -Monitor AM labs # Bilateral Pulmonary Embolism -Continue Eliquis 5 mg bid # UTI -Complete remaining 2 days of Bactrim antibiotic course Code: Full Dispo: Med/Surg DVT Prophylaxis: Eliquis 5 mg bid History of Present Illness Primary Care Provider: Rafaela Green Pt is an 84 year old female that arrives to ED with left should/neck pain. PMHx includes arthritis, bronchiectasis, osteopenia, pulmonary nodules, and PE. Pt indicates she has had left neck /shoulder pain for the last 4 weeks. During the past 4 weeks pt has been hospitalized a few times with a few admissions. In summary, Pt was admitted to [facility] on 11/19 for pneumonia. During her stay, in addition to pneumonia treatment, CT scan showed high clot burden bilateral pulmonary emboli with right heart strain. On 11/24, pt had a vasovagal response, leading to an acute pulmonary emboli. Pt was treated with heparin at the hospital, and transitioned to Eliquis on 11/26. Pt was discharged to [facility] facility after resolution of pneumonia for continued rehab. At [facility], pt was given Baclofen and Gabapentin for her neck pain. She did not like the way those medication made her feel. On Saturday 12/02, pt [facility] to go home. Today pt arrives to the ED stating that her neck pain has not been controlled. She does not give a number score to rate the pain, but explains the muscle as being very tense. The pain does not radiate and touches an area above the back of her left shoulder blade by the posterior side of her neck in the trapezius region. We admitted pt for Cervical Strain. . Allergies Allergy/AdvReac Type Severity Reaction Status Date / Time No Known Allergies Allergy Verified 01/15/18 10:56 Home Medications Medication Instructions Recorded Confirmed Type calcium ER 600 mg (as carb,cit)-D3 1 tab PO QAM 01/12/18 12/05/24 History 12.5 mcg (500 unit) tablet, ext.rel (Citracal-D3 Slow Release) diclofenac sodium 1 % topical gel 2 g topical QID PRN Pain 01/12/18 12/05/24 History (Arthritis Pain (diclofenac)) prednisolone acetate 1 % eye 1 drp ophthalmic (eye) Q12 01/15/18 12/05/24 History drops,suspension (Pred Forte) apixaban 5 mg tablet (Eliquis) 10 mg (2 x 5 mg) PO BID #32 tabs 11/27/24 12/05/24 Rx sulfamethoxazole 800 1 tab PO BID 12/05/24 History mg-trimethoprim 160 mg tablet Past Med/Surg History Problem List UTI (urinary tract infection) JENNIFER (acute kidney injury) Cervical strain Left leg DVT Pulmonary hypertension Bilateral pulmonary embolism Hemoptysis Acute respiratory failure with hypoxia Bronchiectasis Multifocal pneumonia Pleural effusion Pneumonia History of corneal transplant (Acute) Eye pain (Acute) Corneal ulcer (Acute) Medical History Hx of cataract both eyes Hx of staphylococcal infection right eye Hyperlipidemia states no longer takes meds d/t muscle aching Surgical History Hx of colonoscopy Hx of tonsillectomy Hx of appendectomy Hx of cornea transplant x2 right eye Social History Smoking Status: Never smoker Hx Alcohol Use: No Hx Substance Use: No Preferred Language: Tanzanian Communication Ability: Effective Lead Developer Required: No Beliefs That Will Affect Care: None Current Living Situation: Family Feels Safe at Home: Yes Assistive Devices: Other Review of Systems Review of Systems: All systems reviewed & are unremarkable except as noted in HPI & below Physical Exam Constitutional: WD/WN, vitals as above Eyes: PERRL, conjunctivae normal, anicteric sclerae ENMT: external ear and nose normal, oropharynx normal Neck: trachea midline, no thyromegaly Respiratory: normal respiratory effort slight crackles at base of lungs Cardiovascular: RRR, no murmur, no edema Gastrointestinal (Abdomen): normal bowel sounds, soft, nontender, no hepatosplenomegaly Musculoskeletal: no cyanosis or clubbing, extremities motor strength 5/5 Skin: no rashes, warm and dry Psychiatric: A+Ox3, euthymic affect Lymphatic: no cervical or axillary lymphadenopathy Results & Data Results & Data Vital Signs (Past 12 Hours) Vital Signs Temp Pulse Pulse Resp BP BP Pulse Ox 12/05/24 22:11 82 18 162/93 H 93 12/05/24 21:58 12/05/24 21:58 12/05/24 21:00 83 18 151/69 H 97 12/05/24 19:00 82 18 151/85 H 95 12/05/24 16:50 36.4 C L 75 18 142/77 H 94 O2 Del Method 12/05/24 22:11 Room Air 12/05/24 21:58 Room Air 12/05/24 21:58 Room Air 12/05/24 21:00 Room Air 12/05/24 19:00 Room Air 12/05/24 16:50 Room Air Laboratory Results Laboratory Results WBC 6.25 K/ul (4.8-10.8) 12/05/24 Unknown RBC 4.61 M/uL (4.20-5.40) 12/05/24 Unknown Hgb 14.0 g/dl (12.0-16.0) 12/05/24 Unknown Hct 42.1 % (37.0-47.0) 12/05/24 Unknown MCV 91.3 fL (80.0-100.0) 12/05/24 Unknown MCH 30.4 pg (25.0-34.0) 12/05/24 Unknown MCHC 33.3 g/dL (32.0-36.0) 12/05/24 Unknown RDW Std Deviation 43.5 fL (36.4-46.3) 12/05/24 Unknown RDW Coeff of Ronda 13.2 % (11.5-14.5) 12/05/24 Unknown Plt Count 271 K/uL (130-400) 12/05/24 Unknown MPV 9.5 fL (9.4-12.4) 12/05/24 Unknown Immature Gran % (Auto) 0.5 % 12/05/24 Unknown Neut % (Auto) 54.1 % 12/05/24 Unknown Lymph % (Auto) 33.1 % 12/05/24 Unknown Bland % (Auto) 8.5 % 12/05/24 Unknown Eos % (Auto) 2.7 % 12/05/24 Unknown Baso % (Auto) 1.1 % 12/05/24 Unknown Neut # (Auto) 3.38 K/uL (1.40-6.50) 12/05/24 Unknown Lymph # (Auto) 2.07 K/uL (1.20-3.40) 12/05/24 Unknown Bland # (Auto) 0.53 K/uL (0.11-0.59) 12/05/24 Unknown Eos # (Auto) 0.17 K/uL (0.00-0.50) 12/05/24 Unknown Baso # (Auto) 0.07 K/uL (0.00-0.20) 12/05/24 Unknown Immature Gran # (Auto) 0.03 K/uL (0.01-0.20) 12/05/24 Unknown PT Cancelled 12/05/24 Unknown INR Cancelled 12/05/24 Unknown APTT Cancelled 12/05/24 Unknown PTT Ratio Cancelled 12/05/24 Unknown Sodium 137 mmol/L (136-145) 12/05/24 Unknown Potassium 4.1 mmol/L (3.5-5.1) 12/05/24 Unknown Chloride 103 mmol/L (98-107) 12/05/24 Unknown Carbon Dioxide 27 mmol/L (21-32) 12/05/24 Unknown Anion Gap 7 (3-11) 12/05/24 Unknown BUN 11 mg/dl (6-23) 12/05/24 Unknown Creatinine 1.23 mg/dl (0.6-1.2) H 12/05/24 Unknown Est Cr Clr Drug Dosing Not Reportable 12/05/24 Unknown eGFR 43.33 12/05/24 Unknown BUN/Creatinine Ratio 8.9 (10-20) L 12/05/24 Unknown Glucose 98 mg/dl (70-99(Fasting)) 12/05/24 Unknown Calcium 8.9 mg/dl (8.6-10.3) 12/05/24 Unknown Magnesium 2.1 mg/dl (1.7-2.4) 12/05/24 Unknown Total Bilirubin 0.5 mg/dl (0.2-1.0) 12/05/24 Unknown AST 23 U/L (13-39) 12/05/24 Unknown ALT 18 U/L (7-52) 12/05/24 Unknown Alkaline Phosphatase 69 U/L (34-104) 12/05/24 Unknown Troponin I High Sens 3.6 pg/ml (0-14) 12/05/24 Unknown Total Protein 7.7 gm/dl (6.0-8.3) 12/05/24 Unknown Albumin 3.9 gm/dl (3.4-5.0) 12/05/24 Unknown Globulin 3.8 gm/dl (2.5-4.0) 12/05/24 Unknown Albumin/Globulin Ratio 1.0 (0.9-2) 12/05/24 Unknown TSH 3.229 uIu/ml (0.300-4.500) 12/05/24 Unknown Impressions Chest X-Ray 12/05/24 17:10 Chest radiograph, one view History: Chest pain Comparison: 11/24/2024 Findings: Single AP view of the chest performed. Mild patchy opacity about the region of the lingula. Some subtle patchy opacity in the right mid/lower lung also again seen likely related to known chronic atelectasis and bronchiectasis. No pneumothorax. Biapical pleural-parenchymal thickening and scarring again seen. The cardiomediastinal silhouette is within normal limits. Normal pulmonary vascularity. No evidence for lymphadenopathy. No visualized bony or soft tissue abnormality. Impression: Continued atelectasis or consolidation in the lingual. Electronically signed by Roney Pederson 12-05-2024 6:[address] 12/05/24 19:26 CT of cervical spine without contrast Technique: Noncontrast axial in the cervical spine. Coronal and sagittal reformatted images made available for review No comparison Findings: Vertebral heights are normal in height and aligned without fracture or dislocation. Multilevel cervical spondylopathy resulting in varying degrees of canal foraminal stenosis. Impression: No acute osseous pathology. Electronically signed by Keith Sanon 12-05-2024 9:31 PM Code Status & VTE Plan VTE Prophylaxis Plan VTE Prophylaxis will be ordered: No Supervising Physician Co-Signing Physician Notes Patient seen and examined, chart reviewed, case discussed with Dr. Villaseñor and I agree with the assessment and plan as above. Patient presenting with severe left sided neck pain, inability to perform her ADLs at home. Recent PE started on Eliquis anticoagulation On exam she is resting comfortably Left trapezius, paraspinal musculature tender to palpation and boggy +S1/S2, regular, no m/r/g Lungs CTA Abd soft, NT/ND Ext warm, well perfused Labs and images reviewed Assessment/Plan - suspect muscle strain and spasm -Tylenol 1gm po TID -Heat -Diclofenac -Lidoderm patch -PT/OT -Gentle IVF, repeat chemistry in AM to assess JENNIFER -Remainder as above
[2024-12-06] MEDS ORDERED: ALUMINUM/MAGNESIUM SUSP 30 ML UDC PO PRN (03:10)
[2024-12-06] MEDS ORDERED: MAGNESIUM HYDROXIDE SUSP 30 ML UDC PO PRN (03:10)
[2024-12-06] MEDS ORDERED: ONDANSETRON INJ 2 MG/ML 2 ML VIAL IV PRN (03:10)
[2024-12-06] MEDS ORDERED: POLYETHYLENE (MIRALAX) 17 GM PACK PO PRN (03:10)
[2024-12-06] MEDS: LACTATED RINGER'S 1,000 ML IV SCH (03:36)
--- NOTE | 2024-12-06 03:49 | Billing Data ---
Date of Service December 06, 2024 Coding Level of Care Code 88252 INT INP/OBS CARE
[2024-12-06] MEDS: ACETAMINOPHEN 500 MG TAB PO STA (04:13)
[2024-12-06 06:25] LABS: Hematocrit (blood only) 35.8 % (37.0-47.0); Hemoglobin 12.6 g/dl (12.0-16.0); Immature Granulocytes # (auto) 0.03 K/uL (0.01-0.20); Immature Granulocytes % (auto) 0.5 %; Mean Corpuscular Hemoglobin 31.6 pg (25.0-34.0); Mean Corpuscular Volume 89.7 fL (80.0-100.0); Platelet Count 219 K/uL (130-400); RDW Standard Deviation 42.4 fL (36.4-46.3); Red Blood Count 3.99 M/uL (4.20-5.40); White Blood Count 6.25 K/ul (4.8-10.8)
[2024-12-06 06:55] LABS: Anion Gap 6.0 (3-11); Blood Urea Nitrogen 9.0 mg/dl (6-23); Calcium 8.4 mg/dl (8.6-10.3); Carbon Dioxide 26.0 mmol/L (21-32); Chloride 104.0 mmol/L (98-107); Creatinine Clr Calc Pharmacy 36.6 ml/min; Glucose 90.0 mg/dl (70-99(Fasting)); Potassium 3.9 mmol/L (3.5-5.1); Sodium 136.0 mmol/L (136-145)
[2024-12-06 07:19] VITALS: RESP 16
[2024-12-06] MEDS: prednisoLONE acetate 1% OP SUSP 5 ML BTL OP SCH (07:33)
[2024-12-06] MEDS: ACETAMINOPHEN 500 MG TAB PO SCH (08:47)
[2024-12-06] MEDS: APIXABAN 5 MG TABLET PO SCH (09:24)
[2024-12-06] MEDS: REMOVE LIDODERM PATCH SCH (09:26)
--- NOTE | 2024-12-06 12:22 | Hospitalist Progress Note ---
Date of Service December 06, 2024 Assessment & Plan (1) Cervical strain: (2) JENNIFER (acute kidney injury): (3) Bilateral pulmonary embolism: (4) UTI (urinary tract infection): Plan Pt is an 84 year old female that arrives to ED with left should/neck pain. PMHx includes arthritis, bronchiectasis, osteopenia, pulmonary nodules, and PE. We admitted pt for cervical strain. # Cervical Strain / Neck Pain CT cervical spine: negative. CXR: negative related to neck strain - findings from prior pneumonia in R lung, subtle opacities due to atelectasis & bronchiectasis Labs stable. Continue Tylenol 1000mg q8h. Continue scheduled Lidocaine patch IV Solu Medrol 40mg BID added Flexeril prn for muscle spasm, tramadol prn for severe pain. PT/OT consulted - recommending return home Consider pain management referral on dc if pain is not improving. # JENNIFER Creatinine stable @ 1.03 - resolved s/p IVF # Bilateral Pulmonary Embolism - subacute pulmonary embolism Continue Eliquis 5 mg bid --> avoid NSAIDs - pt reports she was using Ibuprofen @ home, educated on adverse effects # UTI Complete remaining 2 days of Bactrim antibiotic course Code: Full DVT Prophylaxis: Eliquis 5 mg bid Hopeful discharge home 12/07 if improvement. Admission and Anticipated Discharge Date Admission Date: December 06, 2024 Supervising Physician Co-Signing Physician Notes The patient was not seen by me. The chart was reviewed. Case discussed with JUSTIN Biswas. Agree with assessment and plan Subjective Enid seen and examined this morning with her daughter at bedside. Enid reports her neck is feeling minimally better today. Reports pain is most pronounced with movement. Physical Exam Constitutional: WD/WN, vitals as above Eyes: PERRL, conjunctivae normal, anicteric sclerae Respiratory: normal respiratory effort Musculoskeletal: tenderness to palpation over left trap region that extends into the neck. Strength 5/5 in UE Results & Data Results & Data Vital Signs (Past 12 Hours) Vital Signs Temp Pulse Pulse Resp BP BP Pulse Ox 12/06/24 07:16 36.6 C 69 16 130/75 93 12/06/24 03:10 36.4 C L 75 20 135/79 94 12/06/24 03:10 36.4 C L 75 20 135/75 94 12/06/24 02:38 12/06/24 02:00 62 18 106/60 O2 Del Method 12/06/24 07:16 Room Air 12/06/24 03:10 Room Air 12/06/24 03:10 Room Air 12/06/24 02:38 Room Air 12/06/24 02:00 PG Care Time/CCT Total # of Minutes Spent Total Time Spent with Patient: Total time spent is greater than 50% in coordination of care (as documented) at patient's floor/unit and/or counseling patient: Coding Level of Care Code 31382 SUB INP/OBS CARE 2/35MIN Diagnoses Cervical strain S16.1XXA JENNIFER (acute kidney injury) N17.9 Bilateral pulmonary embolism I26.99 UTI (urinary tract infection) N39.0
[2024-12-06] MEDS: CYCLOBENZAPRINE HCL 5 MG TAB PO PRN (15:28)
[2024-12-06] MEDS: LIDOCAINE 5% 1 PATCH TD SCH (19:58)
[2024-12-06] MEDS: MELATONIN 3 MG TAB PO PRN (20:02)
[2024-12-06] MEDS ORDERED: methylPREDNISolone 10 mg/mL (For Ped Dose < 7mg) IV SCH (21:00)
--- NOTE | 2024-12-06 22:07 | Electrocardiogram Report ---
Test Reason : Blood Pressure : */* mmHG Vent. Rate : 74 BPM Atrial Rate : 74 BPM P-R Int : 128 ms QRS Dur : 72 ms QT Int : 406 ms P-R-T Axes : 63 39 75 degrees QTcB Int : 450 ms Normal sinus rhythm Nonspecific ST abnormality Abnormal ECG When compared with ECG of 24-Nov-2024 10:15, Nonspecific T wave abnormality no longer evident in Inferior leads Nonspecific T wave abnormality no longer evident in Anterolateral leads Confirmed by Taurus Leyva ([id number]) on 12/06/2024 10:07:25 PM Referred By: Confirmed By: Taurus Leyva
[2024-12-07 07:25] VITALS: BP 133/78; PULSE 73; TEMP 97.3; O2SAT 95
--- NOTE | 2024-12-07 14:09 | Discharge Summary ---
Discharge Summary Date of Service December 07, 2024 Principal Dx & Hospital Course #1 = Principal Diagnosis (1) Cervical strain: (2) JENNIFER (acute kidney injury): (3) Bilateral pulmonary embolism: (4) UTI (urinary tract infection): Plan Pt is an 84 year old female that arrives to ED with left should/neck pain. PMHx includes arthritis, bronchiectasis, osteopenia, pulmonary nodules, and PE. We admitted pt for cervical strain. # Cervical Strain / Neck Pain CT cervical spine: negative. CXR: negative related to neck strain - findings from prior pneumonia in R lung, subtle opacities due to atelectasis & bronchiectasis Labs stable. significant improvement following 3 doses of IV steroids ---> prednisone taper on dc continued scheduled Tylenol 1000mg q8h PT/OT consulted - recommending return home, walked 500ft on 12/07. # JENNIFER Creatinine stable @ 1.03 - resolved s/p IVF # Bilateral Pulmonary Embolism - subacute pulmonary embolism Continue Eliquis 5 mg bid --> avoid NSAIDs - pt reports she was using Ibuprofen @ home, educated on adverse effects # UTI Urinalysis ordered prior to dc at family request. Will follow up on results if + Pt asymptomatic at time of discharge from a urological standpoint. Updated daughter at bedside 12/07 Admission HPI Per Admitting Provider Pt is an 84 year old female that arrives to ED with left should/neck pain. PMHx includes arthritis, bronchiectasis, osteopenia, pulmonary nodules, and PE. Pt indicates she has had left neck /shoulder pain for the last 4 weeks. During the past 4 weeks pt has been hospitalized a few times with a few admissions. In summary, Pt was admitted to [facility] on 11/19 for pneumonia. During her stay, in addition to pneumonia treatment, CT scan showed high clot burden bilateral pulmonary emboli with right heart strain. On 11/24, pt had a vasovagal response, leading to an acute pulmonary emboli. Pt was treated with heparin at the hospital, and transitioned to Eliquis on 11/26. Pt was discharged to [facility] facility after resolution of pneumonia for continued rehab. At [facility], pt was given Baclofen and Gabapentin for her neck pain. She did not like the way those medication made her feel. On Saturday 12/02, pt left [facility] to go home. Today pt arrives to the ED stating that her neck pain has not been controlled. She does not give a number score to rate the pain, but explains the muscle as being very tense. The pain does not radiate and touches an area above the back of her left shoulder blade by the posterior side of her neck in the trapezius region. We admitted pt for Cervical Strain. . Discharge Exam Constitutional WD/WN, vitals as above Eyes PERRL, conjunctivae normal, anicteric sclerae Respiratory normal respiratory effort Skin no rashes, warm and dry Neurologic PERRL, EOMI, accommodation nl, no face palsy, no dysarthria Psychiatric A+Ox3, euthymic affect Discharge Plan Discharge Items Patient Disposition: Home - Home Health Services Reason For Visit: CERVICAL STRAIN Discharge Diagnosis: Neck pain Condition on Discharge: Fair Activity: Resume your previous activity Non-emergency contact: Primary Care Provider Call non-emergency contact if: you have any medication questions, your symptoms worsen and you have a fever Follow-up/Referrals: Rafaela Green PA-C [Primary Care Provider] - (The office is closed. Please call you PCP to schedule a hospital follow up visit in 7-10 days.) Diet: Heart Healthy Addtl Attending Provider Instructions: Ms. Sands, You were recently hospitalized for ongoing neck pain. You were treated with IV steroids and had improvement in your symptoms. You did excellent with physical therapy & are able to go home with home PT/OT services. Upon discharge: Please take the steroid taper as prescribed starting 12/08. Continue to use scheduled Acetaminophen 1000mg every 8 hours. You may use OTC lidocaine patches or Voltaren gel as needed for breakthrough pain. If your urine culture comes back positive, we will be in contact with you to send in an antibiotic. The earliest this would be resulted would be tomorrow afternoon. Home health is being arranged for you for home physical and occupational therapy . The remainder of your medications may be resumed. Please follow up with your PCP within 1-2 weeks of discharge for follow up. Best of luck! Marija Lambert PA-C Pending Studies at Discharge: Yes Studies:: urinalysis/UC Stand-Alone Forms: My [employer], Smoking Cessation Medications and DC Order Prescriptions: New prednisone 10 mg tablet 10 mg PO DIRECTED Qty: 16 0RF Rx Instructions: Please take 4 tablets by mouth for 1 day followed by 3 tablets by mouth for 2 days followed by 2 tablets by mouth for 2 days followed by 1 tablet by mouth for 2 days. Continued diclofenac sodium [Arthritis Pain (diclofenac)] 1 % Gel 2 g TOPICAL QID PRN (Reason: Pain) calcium carb, citrate-vit D3 [Citracal-D3 Slow Release] 600 mg calcium- 500 unit Tablet Extended Release 1 tab PO QAM prednisolone acetate [Pred Forte] 1 % Drops,Suspension 1 drp ophthalmic (eye) Q12 Eliquis 5 mg Tablet 10 mg PO BID Qty: 32 0RF Discontinued sulfamethoxazole-trimethoprim 800-160 mg tablet 1 tab PO BID Rx Instructions: 2 more days of abx Discharge Orders: Discharge Order (Routine); Ordered 12/07/24 Ordered By: Marija Lambert Admission Data Admit Date/Time: 12/06/24 01:17 Attending Provider: Taras Nye Admit Provider: Hazel Villaseñor Primary Care Provider: Rafaela Green Other Providers: Josey David Hospital Stay Data Consultations 12/05/24 23:21 ED Decision to Admit Stat Diagnostic Imagining Performed 12/05/24 19:26 CT cervical spine wo con Stat Pending Results Patient Have Any Pending Studies at Discharge: Yes Discharge Instructions Given to Patient (Per Discharging Provider) Ms. Sands, You were recently hospitalized for ongoing neck pain. You were treated with IV steroids and had improvement in your symptoms. You did excellent with physical therapy & are able to go home with home PT/OT services. Upon discharge: Please take the steroid taper as prescribed starting 12/08. Continue to use scheduled Acetaminophen 1000mg every 8 hours. You may use OTC lidocaine patches or Voltaren gel as needed for breakthrough pain. If your urine culture comes back positive, we will be in contact with you to send in an antibiotic. The earliest this would be resulted would be tomorrow aft william. Home health is being arranged for you for home physical and occupational therapy. The remainder of your medications may be resumed. Please follow up with your PCP within 1-2 weeks of discharge for follow up. Best of luck! Marija Lambert PA-C Supervising Physician Co-Signing Physician Notes The patient was not seen by me. The chart was reviewed. Case discussed with JUSTIN Biswas. Agree with assessment and plan Total Time Total Time Spent Total Time Spent (In Minutes): 50 Total Time Includes: Examination of the Patient, Discharge Planning, Medication Reconciliation, Communication With Other Providers and Other Coding Level of Care Code 06010 INP/OBS DISCH >30 MIN Diagnoses Cervical strain S16.1XXA JENNIFER (acute kidney injury) N17.9 Bilateral pulmonary embolism I26.99 UTI (urinary tract infection) N39.0
[2024-12-07 14:48] LABS: Appearance Urine Clear (Clear); Bacteria Urine Automated None Seen (None Seen); Glucose Urine UA Negative (Negative); RBC Urine Automated 0-2 /hpf (0-2)
== END 2024-12-07 15:08 | disposition home health service (06) ==
LOC: ED 16:41 → SUATTDRO 12-06 01:17 → INTOOBSV 12-06 01:17 → 3E 12-06 01:17